=== PATIENT | male | born 1960 | race Two or more races ===

== ENCOUNTER → 2016-06-25 | Outpatient (CLI) | payer BC | LOC: RAD 09:37 | PROVIDERS: ATTEND Internal Medicine | DX: R07.9 Chest pain, unspecified (principal); R06.02 Shortness of breath | CPT/HCPCS: 71275 ==

== ENCOUNTER → 2016-08-01 | Outpatient (CLI) | payer BC | LOC: RAD 09:38 | PROVIDERS: ATTEND Internal Medicine | DX: C18.6 Malignant neoplasm of descending colon (principal); C78.7 Secondary malignant neoplasm of liver and intrahepatic bile duct; K80.80 Other cholelithiasis without obstruction | CPT/HCPCS: 71260; 74177 ==

== ENCOUNTER 2016-08-17 20:54 | Inpatient (IN) | payer BC ==
[2016-08-17] MEDS ORDERED: NORMAL SALINE 1000 ML 1,000 ML IV ONE (22:03)
[2016-08-17] MEDS ORDERED: ONDANSETRON HCL INJ/PF 4 MG/2 ML SDV IV ONE (22:04)
[2016-08-17] MEDS ORDERED: HYDROMORPHONE HCL INJ/PF 2 MG/ML AMPULE IV ONE (22:04)
--- NOTE | 2016-08-17 22:07 | ER Document Report ---
ED General - General Chief Complaint: Abdominal Cramping Stated Complaint: CRAMPS,FLANK PAIN Notes: Patient is 55-year-old male with a known history of colon cancer. Stage IV colon cancer. Is in chemotherapy. He gets once every 2 weeks. He is due for his next injection this coming week. No fevers. He's had pain that started 2 days ago. They just are having vomiting tonight. He does have a colostomy. He has not had any output in his colostomy in almost 48 hours. TRAVEL OUTSIDE OF THE [place] IN LAST 30 DAYS: No - Related Data Allergies/Adverse Reactions: No Known Allergies Allergy (Unverified 01/01/16 12:51) Past Medical History - Social History Smoking Status: Unknown if Ever Smoked Frequency of alcohol use: None Drug Abuse: None Family History: Reviewed & Not Pertinent - Past Medical History Cardiac Medical History: Denies: Hx Coronary Artery Disease, Hx Heart Attack, Hx Hypertension Pulmonary Medical History: Denies: Hx Asthma, Hx Bronchitis, Hx COPD, Hx Pneumonia Neurological Medical History: Denies: Hx Cerebrovascular Accident, Hx Seizures Renal/ Medical History: Denies: Hx Peritoneal Dialysis Musculoskeltal Medical History: Denies Hx Arthritis Psychiatric Medical History: Denies: Hx Depression - Immunizations Hx Diphtheria, Pertussis, Tetanus Vaccination: No Review of Systems - Review of Systems Notes: My Normal Review Basic REVIEW OF SYSTEMS: CONSTITUTIONAL : Denies fever, chills, or sweats. Denies recent illness. RESPIRATORY: Denies cough, cold, or chest congestion. Denies shortness of breath, difficulty breathing, or wheezing. GASTROINTESTINAL: Severe abdominal pain. Vomiting. No colostomy output GENITOURINARY: Denies difficulty urinating, painful urination, burning, frequency, or blood in urine. MUSCULOSKELETAL: Denies neck or back pain or joint pain or swelling. SKIN: Denies rash or skin lesions. HEMATOLOGIC : Denies easy bruising or bleeding. NEUROLOGICAL: Denies altered mental status or loss of consciousness. Denies headache. Denies weakness or paralysis or loss of use of either side. Denies problems with gait or speech. Denies sensory or motor loss. ALL OTHER SYSTEMS REVIEWED AND NEGATIVE. Physical Exam - Notes Notes: General Appearance: Well nourished, alert, cooperative, no acute distress, moderate obvious discomfort. Vitals: reviewed, See vital signs table. Head: no swelling or tenderness to the head Eyes: PERRL, EOMI, Conjuctiva clear Mouth: No decreasd moisture Neck: Supple, no neck tenderness, No thyromegaly Lungs: No wheezing, No rales, No rhonci, No accessory muscle use, good air exchange bilaterally. Heart: Normal rate, Regular rythm, No murmur, no rub Abdomen: Normal BS, abdomen is firm., No rigidity, moderate diffuse abdominal tenderness, some guarding, no rebound, no abdominal masses, no organomegaly. Sophie Irving has no output. Colostomy bags over left lower quadrant. Extremities: strength 5/5 in all extremities, good pulses in all extremities, no swelling or tenderness in the extremities, no edema. Skin: warm, dry, appropriate color, no rash Neuro: speech clear, oriented x 3, normal affect, responds appropriately to questions. Course - Laboratory Result Diagrams: 08/17/16 22:50 08/17/16 22:50 Laboratory results interpreted by me: 08/17/16 08/17/16 22:50 22:50 WBC 11.0 H RBC 3.76 L Hgb 10.9 L Hct 32.9 L RDW 19.0 H Seg Neutrophils % 83.4 H Lymphocytes % 6.1 L Absolute Neutrophils 9.2 H Sodium 133.2 L Chloride 97 L AST 165 H Alkaline Phosphatase 308 H Albumin 3.1 L - Transfer of Care Notes: 08/18/16 01:04 Patient is now resting comfortably. He still is a little tachycardic. I've given him a second liter of fluids now. His vomiting seems benign control for the time being. Dr. Kruegerlas to evaluate the patient and does not think patient obstruction. He recommends admission of the patient for rehydration as well as pain control. I did speak with Dr. Rosales, patient's primary care doctor who agrees in that the patient. Dictation of this chart was performed using voice recognition software; therefore, there may be some unintended grammatical errors. Discharge - Discharge Clinical Impression: History of colon cancer, stage IV Abdominal pain Qualifiers: Abdominal location: generalized Qualified Code(s): R10.84 - Generalized abdominal pain Vomiting Qualifiers: Vomiting type: unspecified Vomiting Intractability: intractable Nausea presence : with nausea Qualified Code(s): R11.2 - Nausea with vomiting, unspecified Condition: Stable Disposition: ADMITTED OBSERVATION Admitting Provider: Rosales Unit Admitted: Telemetry
[2016-08-17 23:19] LABS: ABSOLUTE LYMPHOCYTES (AUTO) 0.7 10^3/uL (0.5-4.7); ABSOLUTE MONOCYTES (AUTO) 1.1 10^3/uL (0.1-1.4); ABSOLUTE NEUT (AUTO) 9.2 10^3/uL (1.7-8.2); BASOPHILS % (AUTO) 0.2 % (0-2); EOSINOPHILS % (AUTO) 0.2 % (0-6); HEMATOCRIT 32.9 % (37.9-51.0); HEMOGLOBIN 10.9 g/dL (13.5-17.0); HGB HCT DIFFERENCE -0.2; LYMPHOCYTES % (AUTO) 6.1 % (13-45); MEAN CORPUSCULAR HEMOGLOBIN 28.9 pg (27.0-33.4); MEAN CORPUSCULAR VOLUME 88 fl (80-97); MONOCYTES % (AUTO) 10.1 % (3-13); RED BLOOD COUNT 3.76 10^6/uL (4.35-5.55); SEGMENTED NEUTROPHILS % (AUTO) 83.4 % (42-78)
--- NOTE | 2016-08-17 23:28 | PDOC CONSULTATION ---
Consultation Consult Date: 08/17/16 Attending physician:: BRANDI POWERS Consult reason:: Abdominal pain History of Present Illness Patient complains of: Abdominal pain History of Present Illness: VINCENT LEWIS is a 55 year old male Presents to the emergency department complaining of 2 days of worsening abdominal pain, decreased by mouth intake, increased fatigue, and decreased to no colostomy output. The patient has stage IV colon cancer, status post exploratory laparotomy, colectomy, diverting colostomy January [address] Griffith. He is been undergoing chemotherapy by Dr. Plummer the last 7 months. He is now in the emergency department being evaluated. Surgery is consulted Past Medical History Cardiac Medical History: Denies: Coronary Artery Disease, Myocardial Infarction, Hypertension Pulmonary Medical History: Denies: Asthma, Bronchitis, Chronic Obstructive Pulmonary Disease (COPD), Pneumonia Neurological Medical History: Denies: Seizures Musculoskeltal Medical History: Denies: Arthritis Psychiatric Medical History: Denies: Depression Hematology: Reports: Anemia Past Surgical History Past Surgical History: Reports: Other - Exploratory laparotomy , sigmoid colectomy, colostomy, port placement Social History Smoking Status: Unknown if Ever Smoked Frequency of Alcohol Use: None Hx Recreational Drug Use: No Drugs: None Hx Prescription Drug Abuse: No Family History Family History: Reviewed & Not Pertinent Parental Family History Reviewed: Yes Children Family History Reviewed: Yes Sibling(s) Family History Reviewed.: Yes - Sr. with stage IV colon cancer Medication/Allergy Home Medications: Ferrous Sulfate [Iron] 325 mg PO DAILY 01/01/16 Levothyroxine Sodium [Unithroid] 112 mcg PO DAILY 01/17/16 Ibuprofen [Motrin 400 mg Tablet] 400 mg PO Q8HP PRN #0 tablet 01/24/16 Lisinopril [Prinivil 10 mg Tablet] 20 mg PO DAILY #30 tablet 01/24/16 Metoprolol Succinate [Toprol Xl 50 mg Tab.sr] 100 mg PO DAILY #30 tab.sr.24h Allergies/Adverse Reactions: No Known Allergies Allergy (Unverified 01/01/16 12:51) Review of Systems Constitutional: PRESENT: weight loss Ears: ABSENT: hearing changes Cardiovascular: ABSENT: chest pain, dyspnea on exertion, edema, orthropnea, palpitations Respiratory: PRESENT: dyspnea Gastrointestinal: PRESENT: as per HPI Physical Exam Vital Signs: Intake & Output 08/16/16 08/17/1617 06:59 06:59 06:59 Weight 61.9 kg General appearance: PRESENT: mild distress Head exam: PRESENT: normocephalic Eye exam: PRESENT: EOMI Mouth exam: PRESENT: dry mucosa Neck exam: PRESENT: full ROM Respiratory exam: PRESENT: decreased breath sounds Cardiovascular exam: PRESENT: other - Tachycardia GI/Abdominal exam: PRESENT: other - Palpable hepatomegaly; all ostomy appliance removed, colostomy pink, digital examination revealed no mechanical obstruction , no impaction Extremities exam: PRESENT: joint swelling Results Laboratory Results: 08/17/16 22:50 08/17/16 22:50 WBC 11.0 H RBC 3.76 L Hgb 10.9 L Hct 32.9 L MCV 88 MCH 28.9 MCHC 33.0 RDW 19.0 H Plt Count 337 Seg Neutrophils % 83.4 H Lymphocytes % 6.1 L Monocytes % 10.1 Eosinophils % 0.2 Basophils % 0.2 Absolute Neutrophils 9.2 H Absolute Lymphocytes 0.7 Absolute Monocytes 1.1 Absolute Eosinophils 0.0 Absolute Basophils 0.0 Assessment & Plan - Diagnosis (1) History of colon cancer, stage IV Is this a current diagnosis for this admission?: YesPlan: 1. Patient is experiencing increased abdominal pain, nausea and vomiting decreased by mouth intake decreased colostomy output most likely due to worsening hepatomegaly due to extensive metastatic disease. I do not believe he has a mechanical bowel obstruction. There is no indication for surgical intervention 2. Patient is tachycardic and hypertensive likely due to increased abdominal pain. I believe the patient needs to be admitted to the medicine service for pain management, hypertensive management and to discuss level of aggressiveness of care including patient's CODE STATUS. I spoke with patient's [id number] who takes care of patients sister who also has stage IV colon cancer. I explained that patient will likely be admitted to the medicine service, and further discussion about advanced directives will be undertaken tomorrow morning. (2) Malignant neoplasm of descending colon Is this a current diagnosis for this admission?: Yes - Time Time Spent: 50 to 70 Minutes Critical Time spent with patient: 15-24 minutes
[2016-08-17 23:30] LABS: ALANINE AMINOTRANSFERASE 43 U/L (21-72); ALBUMIN 3.1 g/dL (3.5-5.0); ALKALINE PHOSPHATASE 308 U/L (38-126); ANION GAP 10 (5-19); ASPARTATE AMINO TRANSFERASE 165 U/L (17-59); BILIRUBIN,DIRECT 0.4 mg/dL (0.0-0.4); BILIRUBIN,TOTAL 0.9 mg/dL (0.2-1.3); BLOOD UREA NITROGEN 13 mg/dL (7-20); CALCIUM 9.2 mg/dL (8.4-10.2); CARBON DIOXIDE 26 mmol/L (22-30); CHLORIDE 97 mmol/L (98-107); CREATININE RESULT 0.56 mg/dL (0.52-1.25); GLUCOSE 102 mg/dL (75-110); LIPASE 120.4 U/L (23-300); POTASSIUM 4.3 mmol/L (3.6-5.0); SODIUM 133.2 mmol/L (137-145); TOTAL PROTEIN 7.5 g/dL (6.3-8.2)
[2016-08-18] MEDS ORDERED: NORMAL SALINE 1000 ML 1,000 ML IV ONE (00:44)
[2016-08-18] MEDS ORDERED: NORMAL SALINE 1000 ML 1,000 ML IV PRN (05:22)
[2016-08-18] MEDS: ONDANSETRON HCL INJ/PF 4 MG/2 ML SDV IV PRN (06:29)
[2016-08-18] MEDS: HYDROMORPHONE HCL INJ/PF 2 MG/ML AMPULE IV PRN ×3 (06:29→20:58)
--- NOTE | 2016-08-18 07:59 | PDOC H&P ---
History of Present Illness Admission Date/PCP: 08/18/16 05:15 Patient complains of: abdominal pain History of Present Illness: VINCENT LEWIS is a 55 year old male Presents to the emergency department complaining of 2 days of worsening abdominal pain, decreased by mouth intake, increased fatigue, and decreased to no colostomy output. The patient has stage IV colon cancer, status post exploratory laparotomy, colectomy, diverting colostomy January [address] Griffith. He is been undergoing chemotherapy by Dr. Plummer the last 7 months. Last chemo 12d ago. RUQ pain is persistant. Other quadrants are crampy. Vomited 3 times yesterday. Transient diarrhea changed to constipation 2d ago. Past Medical History Cardiac Medical History: Reports: Hypertension Denies: Coronary Artery Disease, Myocardial Infarction Pulmonary Medical History: Denies: Asthma, Bronchitis, Chronic Obstructive Pulmonary Disease (COPD), Pneumonia EENT Medical History: Reports: Nose - allergic rhinitis Neurological Medical History: Reports: None Endocrine Medical History: Reports: Hypothyroidism Renal/ Medical History: Reports: None Malignancy Medical History: Reports: Colorectal Cancer GI Medical History: Reports: None Musculoskeltal Medical History: Reports: None Skin Medical History: Reports: None Psychiatric Medical History: Reports: None Denies: Depression Traumatic Medical History: Reports: None Hematology: Reports: Anemia Infectious Medical History: Reports: None Past Surgical History Past Surgical History: Reports: Other - Exploratory laparotomy , sigmoid colectomy, colostomy, port placement Social History Information Source: Dr. Wdae Lives with: Family Smoking Status: Never Smoker Frequency of Alcohol Use: None Hx Recreational Drug Use: No Drugs: None Hx Prescription Drug Abuse: No - Advance Directive Resuscitation Status: Full Code Family History Family History: CVA, Hypertension, Malignancy - sister colon Parental Family History Reviewed: Yes Children Family History Reviewed: Yes Sibling(s) Family History Reviewed.: Yes Medication/Allergy Home Medications: Atorvastatin Calcium [Lipitor 10 mg Tablet] 10 mg PO QHS 08/18/16 Ferrous Sulfate [Ferrousul] 325 mg PO DAILY 08/18/16 Levothyroxine Sodium [Synthroid] 137 mcg PO 08/18/16 Lisinopril [Zestril] 20 mg PO DAILY 08/18/16 Allergies/Adverse Reactions: No Known Allergies Allergy (Unverified 01/01/16 12:51) Review of Systems Constitutional: PRESENT: chills, fatigue, headache(s), weakness, weight loss - 21# in 1y Nose, Mouth, and Throat: ABSENT: sore throat Cardiovascular: ABSENT: chest pain, dyspnea on exertion, orthropnea Respiratory: ABSENT: cough Gastrointestinal: PRESENT: abdominal pain, diarrhea, vomiting. ABSENT: hematochezia Genitourinary: ABSENT: dysuria, hematuria Allergic/Immunologic: PRESENT: seasonal rhinorrhea Physical Exam Vital Signs: Temp Pulse Resp BP Pulse Ox 98.8 F 111 H 18 128/82 H 97 08/18/16 05:51 08/18/16 05:51 08/18/16 05:51 08/18/16 05:51 08/18/16 05:51 Intake & Output 08/16/16 08/17/16 08/18/16 07:59 07:59 07:59 Weight 135 lb 2.294 oz General appearance: PRESENT: no acute distress Mouth exam: ABSENT: moist Neck exam: ABSENT: lymphadenopathy, tenderness, thyromegaly, tracheal deviation Respiratory exam: PRESENT: clear to auscultation bre Cardiovascular exam: PRESENT: tachycardia. ABSENT: diastolic murmur, systolic murmur GI/Abdominal exam: PRESENT: guarding, organolmegaly - liver almost to umbilicus , tenderness - difuse. ABSENT: distended Extremities exam: ABSENT: pedal edema Neurological exam: PRESENT: oriented to situation Psychiatric exam: PRESENT: depressed Results Laboratory Results: Abnormal - 24 hr 08/17/16 08/17/16 22:50 22:50 WBC 11.0 H RBC 3.76 L Hgb 10.9 L Hct 32.9 L RDW 19.0 H Seg Neutrophils % 83.4 H Lymphocytes % 6.1 L Absolute Neutrophils 9.2 H Sodium 133.2 L Chloride 97 L AST 165 H Alkaline Phosphatase 308 H Albumin 3.1 L Impressions: Acute Abdomen Series 08/17/16 22:03 IMPRESSION: NO RADIOGRAPHIC EVIDENCE FOR ACUTE ABDOMINAL DISEASE. Extensive nodular lung lesions consistent with previously suspected metastases. Assessment & Plan - Diagnosis (1) Malignant neoplasm of descending colon Is this a current diagnosis for this admission?: YesPlan: Recent CT showed bigger liver mets & stable lung mets. Saline, dilaudid, ondansetron, consult onc. Considering DNR. ?hospice.
--- NOTE | 2016-08-18 08:09 | PDOC CONSULTATION ---
Consultation Consult Date: 08/18/16 Attending physician:: MIGUEL SIN Consult reason:: Concern of obstruction, patient with no ostomy output for 2 days History of Present Illness Admission Date/PCP: 08/18/16 05:15 Patient complains of: Nausea, no ostomy output History of Present Illness: 55-year-old male with known history of stage IV colon cancer, he has metastasis to the liver and lung. Recently he has been on chemotherapy with FOLFOX plus Avastin. He is been doing very well with treatment, tolerating it well, having a good performance status. He has had issues with constipation in the past. On Thursday, he had a liquidy output from his ostomy, but since then over the last 48 hours he has not had any ostomy output, and no gas passed either. He does have some nausea this morning, some pain at the ostomy site. His last imaging was about 6 weeks ago when he had overall stable disease. Past Medical History Cardiac Medical History: Reports: Hypertension Denies: Coronary Artery Disease, Myocardial Infarction Pulmonary Medical History: Denies: Asthma, Bronchitis, Chronic Obstructive Pulmonary Disease (COPD), Pneumonia EENT Medical History: Reports: Nose - allergic rhinitis Neurological Medical History: Reports: None Denies: Seizures Endocrine Medical History: Reports: Hypothyroidism Renal/ Medical History: Reports: None Malignancy Medical History: Reports: Colorectal Cancer GI Medical History: Reports: None Musculoskeltal Medical History: Reports: None Denies: Arthritis Skin Medical History: Reports: None Psychiatric Medical History: Reports: None Denies: Depression Traumatic Medical History: Reports: None Hematology: Reports: Anemia Infectious Medical History: Reports: None Past Surgical History Past Surgical History: Reports: Other - Exploratory laparotomy , sigmoid colectomy, colostomy, port placement Social History Lives with: Family Smoking Status: Never Smoker Frequency of Alcohol Use: None Hx Recreational Drug Use: No Drugs: None Hx Prescription Drug Abuse: No - Advance Directive Resuscitation Status: Full Code Family History Family History: CVA, Hypertension, Malignancy - sister colon Parental Family History Reviewed: Yes Children Family History Reviewed: Yes Sibling(s) Family History Reviewed.: Yes Medication/Allergy Home Medications: Atorvastatin Calcium [Lipitor 10 mg Tablet] 10 mg PO QHS 08/18/16 Ferrous Sulfate [Ferrousul] 325 mg PO DAILY 08/18/16 Levothyroxine Sodium [Synthroid] 137 mcg PO 08/18/16 Lisinopril [Zestril] 20 mg PO DAILY 08/18/16 Allergies/Adverse Reactions: No Known Allergies Allergy (Unverified 01/01/16 12:51) Review of Systems Constitutional: ABSENT: chills, fever(s), headache(s), weight gain, weight loss Eyes: ABSENT: visual disturbances Ears: ABSENT: hearing changes Cardiovascular: ABSENT: chest pain, dyspnea on exertion, edema, orthropnea, palpitations Respiratory: ABSENT: cough, hemoptysis Gastrointestinal: PRESENT: bloating, nausea, other - No ostomy output Genitourinary: ABSENT: dysuria, hematuria Musculoskeletal: ABSENT: joint swelling Integumentary: ABSENT: rash, wounds Neurological: ABSENT: abnormal gait, abnormal speech, confusion, dizziness, focal weakness, syncope Psychiatric: ABSENT: anxiety, depression, homidical ideation, suicidal ideation Endocrine: ABSENT: cold intolerance, heat intolerance, polydipsia, polyuria Hematologic/Lymphatic: ABSENT: easy bleeding, easy bruising Physical Exam Vital Signs: Temp Pulse Resp BP Pulse Ox 98.8 F 111 H 18 128/82 H 97 08/18/16 05:51 08/18/16 05:51 08/18/16 05:51 08/18/16 05:51 08/18/16 05:51 Intake & Output 08/17/16 08/18/16 08/19/16 06:59 06:59 06:59 Weight 61.3 kg General appearance: PRESENT: no acute distress, well-developed, well-nourished Head exam: PRESENT: atraumatic, normocephalic Eye exam: PRESENT: conjunctiva pink, EOMI, PERRLA. ABSENT: scleral icterus Ear exam: PRESENT: normal external ear exam Mouth exam: PRESENT: moist, tongue midline Neck exam: ABSENT: carotid bruit, JVD, lymphadenopathy, thyromegaly Respiratory exam: PRESENT: clear to auscultation bre. ABSENT: rales, rhonchi, wheezes Cardiovascular exam: PRESENT: RRR. ABSENT: diastolic murmur, rubs, systolic murmur Pulses: PRESENT: normal dorsalis pedis pul Vascular exam: PRESENT: normal capillary refill GI/Abdominal exam: PRESENT: normal bowel sounds, soft. ABSENT: distended, guarding, mass, organolmegaly, rebound, tenderness Rectal exam: PRESENT: deferred Extremities exam: PRESENT: full ROM. ABSENT: calf tenderness, clubbing, pedal edema Neurological exam: PRESENT: alert, awake, oriented to person, oriented to place , oriented to time, oriented to situation, CN II-XII grossly intact. ABSENT: motor sensory deficit Psychiatric exam: PRESENT: appropriate affect, normal mood. ABSENT: homicidal ideation, suicidal ideation Skin exam: PRESENT: dry, intact, warm. ABSENT: cyanosis, rash Results Impressions: Acute Abdomen Series 08/17/16 22:03 IMPRESSION: NO RADIOGRAPHIC EVIDENCE FOR ACUTE ABDOMINAL DISEASE. Extensive nodular lung lesions consistent with previously suspected metastases. Status: Image reviewed by me Assessment & Plan - Diagnosis (1) Obstruction of intestine or colon Qualifiers: Intestinal obstruction type: other intestinal obstruction Qualified Code(s): K56.69 - Other intestinal obstruction Is this a current diagnosis for this admission?: YesPlan: Concern of obstruction, I have discussed case with general surgery, they will be doing a Gastrografin enema today. Hopefully that won't show complete obstruction, he may just have a partial obstruction possibly from severe constipation. If that is the case then enemas will help him, and once we get that moving then we can advance diet and get him home and continue treatment. (2) Malignant neoplasm of descending colon Is this a current diagnosis for this admission?: YesPlan: Stage IV colon cancer, currently on IV chemotherapy, we will continue this as an outpatient. - Time Time Spent: Greater than 70 Minutes Critical Time spent with patient: 35 or more minutes - Inpatient Certification Based on my medical assessment, after consideration of the patient's comorbidities, presenting symptoms, or acuity I expect that the services needed warrant INPATIENT care.: Yes I certify that my determination is in accordance with my understanding of Medicare's requirements for reasonable and necessary INPATIENT services [42 CFR 412.3e].: Yes Medical Necessity: Need for Surgery, Risk of Complication if Not Cared For in Hospital, Other - No ostomy output, concern of obstruction
[2016-08-18] MEDS: LEVOTHYROXINE SODIUM 0.112 MG TABLET PO SCH (09:21)
--- NOTE | 2016-08-18 09:43 | PROGRESS NOTE E ---
Progress Note NAME: VINCENT LEWIS : 1960 AGE: 55Y DATE: 08/18/2016 ROOM: 435 SUBJECTIVE: Dr. Plummer asked me to see the patient for possible decreased drainage from the colostomy. Patient's chart reviewed and apparently seen by Dr. Slater yesterday or last night in the emergency room. Dr. lSater' consult reviewed. I saw the patient at bedside and taking Jello. He denies any nausea or vomiting. OBJECTIVE: The abdomen is soft and the colostomy is starting to have some gas. A digital exam of the colostomy was performed and no lesion palpated or stool in the colostomy site. He has stage IV colon cancer and had a diverting colostomy done by Dr. Slater in the past. His abdomen is flat and soft without any obvious tenderness. PLAN: I believe the colostomy is starting to function again and will hold off doing any Gastrografin enema that I initially talked to Dr. Plummer that I plan to do. At any rate, will continue following the patient with you. DICTATING PHYSICIAN: JOSE CARLOS MORRISON M.D. [id number] JOHNY#: [id number] ID: [id number] JOB#: [id number] ACCT: [id number] cc: > MTDD
[2016-08-18] MEDS ORDERED: LACTULOSE SYRUP 20 GM/30 ML UDCUP PO ONE (19:30)
[2016-08-19] MEDS: HYDROMORPHONE HCL INJ/PF 2 MG/ML AMPULE IV PRN ×3 (03:17→17:44)
[2016-08-19 05:40] LABS: ANION GAP 8 (5-19); BLOOD UREA NITROGEN 7 mg/dL (7-20); CALCIUM 8.7 mg/dL (8.4-10.2); CARBON DIOXIDE 28 mmol/L (22-30); CHLORIDE 98 mmol/L (98-107); CREATININE RESULT 0.54 mg/dL (0.52-1.25); GLUCOSE 104 mg/dL (75-110); POTASSIUM 4.2 mmol/L (3.6-5.0); SODIUM 133.5 mmol/L (137-145)
--- NOTE | 2016-08-19 08:27 | PDOC PROGRESS REPORT ---
Subjective Progress Note for:: 08/19/16 Subjective:: less RLQ pain. Gas only in bag Physical Exam Vital Signs: Temp Pulse Resp BP Pulse Ox 98.9 F 108 H 19 127/76 H 96 08/18/16 23:20 08/18/16 23:20 08/18/16 23:20 08/18/16 23:20 08/18/16 23:20 General appearance: PRESENT: no acute distress Respiratory exam: PRESENT: clear to auscultation bre Cardiovascular exam: PRESENT: RRR. ABSENT: diastolic murmur, systolic murmur GI/Abdominal exam: PRESENT: organolmegaly - liver, tenderness - RLQ moderate. ABSENT: guarding Extremities exam: ABSENT: pedal edema Results Laboratory Results: 08/19/16 04:45 08/19/16 04:45 Sodium 133.5 L Potassium 4.2 Chloride 98 Carbon Dioxide 28 Anion Gap 8 BUN 7 Creatinine 0.54 Est GFR ( Amer) > 60 Est GFR (Non-Af Amer) > 60 Glucose 104 Calcium 8.7 Impressions: Acute Abdomen Series 08/17/16 22:03 IMPRESSION: NO RADIOGRAPHIC EVIDENCE FOR ACUTE ABDOMINAL DISEASE. Extensive nodular lung lesions consistent with previously suspected metastases. Assessment & Plan - Diagnosis (1) Malignant neoplasm of descending colon Is this a current diagnosis for this admission?: Yes (2) Constipation Qualifiers: Constipation type: drug induced constipation Qualified Code(s): K59.03 - Drug induced constipation Is this a current diagnosis for this admission?: YesPlan: amitiza
[2016-08-19] MEDS ORDERED: SENNOSIDES/DOCUSATE 8.6-50 MG 1 EACH TABLET PO PRN (08:38)
[2016-08-19] MEDS ORDERED: POLYETHYLENE GLYCOL 3350 POWDER 17 GM/1 PACKET PO PRN (08:38)
--- NOTE | 2016-08-19 08:38 | PDOC PROGRESS REPORT ---
Subjective Progress Note for:: 08/19/16 Subjective:: Patient does now have gas in the ostomy bag, general surgery did see him yesterday, initially they were thinking of doing a Gastrografin enema but given the fact that there was gas in the bag they felt like the bowel function would return appropriately. He is tolerating clear liquid diet thus far. Physical Exam Vital Signs: Temp Pulse Resp BP Pulse Ox 98.9 F 108 H 19 127/76 H 96 08/18/16 23:20 08/18/16 23:20 08/18/16 23:20 08/18/16 23:20 08/18/16 23:20 General appearance: PRESENT: no acute distress, well-developed, well-nourished Head exam: PRESENT: atraumatic, normocephalic Eye exam: PRESENT: conjunctiva pink, EOMI, PERRLA. ABSENT: scleral icterus Ear exam: PRESENT: normal external ear exam Mouth exam: PRESENT: moist, tongue midline Neck exam: ABSENT: carotid bruit, JVD, lymphadenopathy, thyromegaly Respiratory exam: PRESENT: clear to auscultation bre. ABSENT: rales, rhonchi, wheezes Cardiovascular exam: PRESENT: RRR. ABSENT: diastolic murmur, rubs, systolic murmur Pulses: PRESENT: normal dorsalis pedis pul Vascular exam: PRESENT: normal capillary refill GI/Abdominal exam: PRESENT: normal bowel sounds, soft. ABSENT: distended, guarding, mass, organolmegaly, rebound, tenderness Rectal exam: PRESENT: deferred Extremities exam: PRESENT: full ROM. ABSENT: calf tenderness, clubbing, pedal edema Neurological exam: PRESENT: alert, awake, oriented to person, oriented to place , oriented to time, oriented to situation, CN II-XII grossly intact. ABSENT: motor sensory deficit Psychiatric exam: PRESENT: appropriate affect, normal mood. ABSENT: homicidal ideation, suicidal ideation Skin exam: PRESENT: dry, intact, warm. ABSENT: cyanosis, rash Results Laboratory Results: 08/19/16 04:45 08/19/16 04:45 Sodium 133.5 L Potassium 4.2 Chloride 98 Carbon Dioxide 28 Anion Gap 8 BUN 7 Creatinine 0.54 Est GFR ( Amer) > 60 Est GFR (Non-Af Amer) > 60 Glucose 104 Calcium 8.7 Impressions: Acute Abdomen Series 08/17/16 22:03 IMPRESSION: NO RADIOGRAPHIC EVIDENCE FOR ACUTE ABDOMINAL DISEASE. Extensive nodular lung lesions consistent with previously suspected metastases. Assessment & Plan - Diagnosis (1) Obstruction of intestine or colon Qualifiers: Intestinal obstruction type: other intestinal obstruction Qualified Code(s): K56.69 - Other intestinal obstruction Is this a current diagnosis for this admission?: YesPlan: Seems to be improving now that there is gas in the ostomy site, hopefully bowels start moving with the next 24 hours. I've ordered MiraLAX as well as Senokot. If we don't have bowel movements by tomorrow I think further imaging would be appropriate. (2) Malignant neoplasm of descending colon Is this a current diagnosis for this admission?: YesPlan: Further treatment planned as an outpatient - Inpatient Certification Medical Necessity: Need For IV Fluids, Need for Surgery
[2016-08-19] MEDS: OXYCODONE HCL IR 5 MG TABLET PO PRN (10:34)
[2016-08-19] MEDS: LUBIPROSTONE 24 MCG CAPSULE PO SCH ×2 (10:35→17:37)
[2016-08-19] MEDS: LEVOTHYROXINE SODIUM 0.112 MG TABLET PO SCH (10:35)
[2016-08-19] MEDS: LACTULOSE SYRUP 20 GM/30 ML UDCUP PO SCH ×2 (10:38→17:38)
[2016-08-19] MEDS: FLUTICASONE NASAL SPRAY 50 MCG/SPRY 120 SPRAY/16 GM NASL PRN (22:42)
[2016-08-20] MEDS: OXYCODONE HCL IR 5 MG TABLET PO PRN ×3 (01:33→23:07)
[2016-08-20] MEDS: HYDROMORPHONE HCL INJ/PF 2 MG/ML AMPULE IV PRN (04:04)
[2016-08-20 06:38] LABS: ANION GAP 7 (5-19); BLOOD UREA NITROGEN 3 mg/dL (7-20); CALCIUM 8.6 mg/dL (8.4-10.2); CARBON DIOXIDE 30 mmol/L (22-30); CHLORIDE 98 mmol/L (98-107); CREATININE RESULT 0.49 mg/dL (0.52-1.25); GLUCOSE 126 mg/dL (75-110); POTASSIUM 3.5 mmol/L (3.6-5.0); SODIUM 134.9 mmol/L (137-145)
--- NOTE | 2016-08-20 08:14 | PDOC PROGRESS REPORT ---
Subjective Progress Note for:: 08/20/16 Subjective:: 4 stools in bag. Less nausea & pain. Not ready for home yet Physical Exam Vital Signs: Temp Pulse Resp BP Pulse Ox 98.5 F 113 H 20 142/95 H 92 08/19/16 23:10 08/19/16 23:10 08/19/16 23:10 08/19/16 23:10 08/19/16 23:10 Intake & Output 08/19/16 08/20/16 08/21/16 07:59 07:59 07:59 Intake Total 5031 Balance 5031 Weight 139 lb 8.842 oz General appearance: PRESENT: no acute distress Respiratory exam: PRESENT: clear to auscultation bre Cardiovascular exam: ABSENT: diastolic murmur, irregular rhythm, systolic murmur GI/Abdominal exam: PRESENT: organolmegaly, tenderness - mild diffuse Extremities exam: ABSENT: pedal edema Neurological exam: PRESENT: oriented to situation Psychiatric exam: PRESENT: appropriate affect Results Laboratory Results: 08/20/16 05:45 08/20/16 05:45 Sodium 134.9 L Potassium 3.5 L Chloride 98 Carbon Dioxide 30 Anion Gap 7 BUN 3 L Creatinine 0.49 L Est GFR ( Amer) > 60 Est GFR (Non-Af Amer) > 60 Glucose 126 H Calcium 8.6 Impressions: Acute Abdomen Series 08/17/16 22:03 IMPRESSION: NO RADIOGRAPHIC EVIDENCE FOR ACUTE ABDOMINAL DISEASE. Extensive nodular lung lesions consistent with previously suspected metastases. Assessment & Plan - Diagnosis (1) Malignant neoplasm of descending colon Is this a current diagnosis for this admission?: YesPlan: stop iv dilaudid (2) Constipation Qualifiers: Constipation type: drug induced constipation Qualified Code(s): K59.03 - Drug induced constipation Is this a current diagnosis for this admission?: YesPlan: improved. Continue laxatives.
--- NOTE | 2016-08-20 08:44 | PDOC PROGRESS REPORT ---
Subjective Progress Note for:: 08/20/16 Subjective:: Pt now having liquid BMs Physical Exam Vital Signs: Temp Pulse Resp BP Pulse Ox 98.3 F 98 16 136/88 H 98 08/20/16 08:29 08/20/16 08:29 08/20/16 08:29 08/20/16 08:29 08/20/16 08:29 Intake & Output 08/19/16 08/20/16 08/21/16 06:59 06:59 06:59 Intake Total 5031 Balance 5031 Weight 63.3 kg General appearance: PRESENT: no acute distress, well-developed, well-nourished Head exam: PRESENT: atraumatic, normocephalic Eye exam: PRESENT: conjunctiva pink, EOMI, PERRLA. ABSENT: scleral icterus Ear exam: PRESENT: normal external ear exam Mouth exam: PRESENT: moist, tongue midline Neck exam: ABSENT: carotid bruit, JVD, lymphadenopathy, thyromegaly Respiratory exam: PRESENT: clear to auscultation bre. ABSENT: rales, rhonchi, wheezes Cardiovascular exam: PRESENT: RRR. ABSENT: diastolic murmur, rubs, systolic murmur Pulses: PRESENT: normal dorsalis pedis pul Vascular exam: PRESENT: normal capillary refill GI/Abdominal exam: PRESENT: normal bowel sounds, soft. ABSENT: distended, guarding, mass, organolmegaly, rebound, tenderness Rectal exam: PRESENT: deferred Extremities exam: PRESENT: full ROM. ABSENT: calf tenderness, clubbing, pedal edema Neurological exam: PRESENT: alert, awake, oriented to person, oriented to place , oriented to time, oriented to situation, CN II-XII grossly intact. ABSENT: motor sensory deficit Psychiatric exam: PRESENT: appropriate affect, normal mood. ABSENT: homicidal ideation, suicidal ideation Skin exam: PRESENT: dry, intact, warm. ABSENT: cyanosis, rash Results Laboratory Results: 08/20/16 05:45 08/20/16 05:45 Sodium 134.9 L Potassium 3.5 L Chloride 98 Carbon Dioxide 30 Anion Gap 7 BUN 3 L Creatinine 0.49 L Est GFR ( Amer) > 60 Est GFR (Non-Af Amer) > 60 Glucose 126 H Calcium 8.6 Impressions: Acute Abdomen Series 08/17/16 22:03 IMPRESSION: NO RADIOGRAPHIC EVIDENCE FOR ACUTE ABDOMINAL DISEASE. Extensive nodular lung lesions consistent with previously suspected metastases. Assessment & Plan - Diagnosis (1) Obstruction of intestine or colon Qualifiers: Intestinal obstruction type: other intestinal obstruction Qualified Code(s): K56.69 - Other intestinal obstruction Is this a current diagnosis for this admission?: YesPlan: Resolved, having liquid BMs, feeling better, will advance diet. If tolerated D/ C tomorrow (2) Malignant neoplasm of descending colon Is this a current diagnosis for this admission?: YesPlan: Hold chemo this week, restart next week - Inpatient Certification Medical Necessity: Need For IV Fluids
[2016-08-20] MEDS: LEVOTHYROXINE SODIUM 0.112 MG TABLET PO SCH (10:59)
[2016-08-20] MEDS: LUBIPROSTONE 24 MCG CAPSULE PO SCH ×2 (11:00→18:03)
[2016-08-20] MEDS: LACTULOSE SYRUP 20 GM/30 ML UDCUP PO SCH ×2 (11:00→18:03)
[2016-08-20] MEDS: FLUTICASONE NASAL SPRAY 50 MCG/SPRY 120 SPRAY/16 GM NASL PRN (20:20)
--- NOTE | 2016-08-20 21:28 | PROGRESS NOTE E ---
Progress Note NAME: VINCENT LEWIS : 1960 AGE: 55Y DATE: 08/20/2016 ROOM: 435 SUBJECTIVE: The patient's colostomy is functioning very well. She is also tolerating a regular diet. We will sign off followup for the patient since at the present time there is no obstruction on the colostomy. DICTATING PHYSICIAN: JOSE CARLOS MORRISON M.D. [id number] PHY#: [id number] ID: [id number] JOB#: [id number] ACCT: [id number] cc: >
[2016-08-21 06:24] LABS: ANION GAP 6 (5-19); BLOOD UREA NITROGEN 3 mg/dL (7-20); CALCIUM 8.6 mg/dL (8.4-10.2); CARBON DIOXIDE 32 mmol/L (22-30); CHLORIDE 95 mmol/L (98-107); CREATININE RESULT 0.45 mg/dL (0.52-1.25); GLUCOSE 85 mg/dL (75-110); POTASSIUM 3.6 mmol/L (3.6-5.0); SODIUM 133.3 mmol/L (137-145)
[2016-08-21] MEDS ORDERED: ACETAMINOPHEN 325 MG TABLET PO PRN (07:15)
--- NOTE | 2016-08-21 07:21 | PDOC PROGRESS REPORT ---
Subjective Progress Note for:: 08/21/16 Subjective:: epigastric & RUQ pain worse. Oxy5 failed. Filled bag 3 times Physical Exam Vital Signs: Temp Pulse Resp BP Pulse Ox 100.2 F 105 H 19 146/91 H 98 08/21/16 04:00 08/20/16 23:52 08/20/16 23:52 08/20/16 23:52 08/20/16 23:52 Intake & Output 08/19/16 08/20/16 08/21/16 07:59 07:59 07:59 Intake Total 5031 840 Balance 5031 840 Weight 139 lb 8.842 oz 140 lb 10.479 oz General appearance: PRESENT: mild distress Respiratory exam: PRESENT: clear to auscultation bre Cardiovascular exam: PRESENT: RRR. ABSENT: diastolic murmur, systolic murmur GI/Abdominal exam: PRESENT: organolmegaly, tenderness - moderate epigstric. ABSENT: guarding Extremities exam: ABSENT: pedal edema Results Laboratory Results: 08/21/16 05:15 08/21/16 05:15 Sodium 133.3 L Potassium 3.6 Chloride 95 L Carbon Dioxide 32 H Anion Gap 6 BUN 3 L Creatinine 0.45 L Est GFR ( Amer) > 60 Est GFR (Non-Af Amer) > 60 Glucose 85 Calcium 8.6 Impressions: Acute Abdomen Series 08/17/16 22:03 IMPRESSION: NO RADIOGRAPHIC EVIDENCE FOR ACUTE ABDOMINAL DISEASE. Extensive nodular lung lesions consistent with previously suspected metastases. Assessment & Plan - Diagnosis (1) Malignant neoplasm of descending colon Is this a current diagnosis for this admission?: YesPlan: add fentanyl patch 50 (2) Constipation Qualifiers: Constipation type: drug induced constipation Qualified Code(s): K59.03 - Drug induced constipation Is this a current diagnosis for this admission?: YesPlan: stop miralax
--- NOTE | 2016-08-21 07:58 | PDOC PROGRESS REPORT ---
Subjective Progress Note for:: 08/21/16 Subjective:: Patient still had some abdominal pain, having liquidy BMs through ostomy, tolerated regular diet yesterday Physical Exam Vital Signs: Temp Pulse Resp BP Pulse Ox 100.2 F 105 H 19 146/91 H 98 08/21/16 04:00 08/20/16 23:52 08/20/16 23:52 08/20/16 23:52 08/20/16 23:52 Intake & Output 08/20/16 08/21/16 08/22/16 06:59 06:59 06:59 Intake Total 5031 840 Balance 5031 840 Weight 63.3 kg 63.8 kg General appearance: PRESENT: no acute distress, well-developed, well-nourished Head exam: PRESENT: atraumatic, normocephalic Eye exam: PRESENT: conjunctiva pink, EOMI, PERRLA. ABSENT: scleral icterus Ear exam: PRESENT: normal external ear exam Mouth exam: PRESENT: moist, tongue midline Neck exam: ABSENT: carotid bruit, JVD, lymphadenopathy, thyromegaly Respiratory exam: PRESENT: clear to auscultation bre. ABSENT: rales, rhonchi, wheezes Cardiovascular exam: PRESENT: RRR. ABSENT: diastolic murmur, rubs, systolic murmur Pulses: PRESENT: normal dorsalis pedis pul Vascular exam: PRESENT: normal capillary refill GI/Abdominal exam: PRESENT: normal bowel sounds, soft. ABSENT: distended, guarding, mass, organolmegaly, rebound, tenderness Rectal exam: PRESENT: deferred Extremities exam: PRESENT: full ROM. ABSENT: calf tenderness, clubbing, pedal edema Neurological exam: PRESENT: alert, awake, oriented to person, oriented to place , oriented to time, oriented to situation, CN II-XII grossly intact. ABSENT: motor sensory deficit Psychiatric exam: PRESENT: appropriate affect, normal mood. ABSENT: homicidal ideation, suicidal ideation Skin exam: PRESENT: dry, intact, warm. ABSENT: cyanosis, rash Results Laboratory Results: 08/21/16 05:15 08/21/16 05:15 Sodium 133.3 L Potassium 3.6 Chloride 95 L Carbon Dioxide 32 H Anion Gap 6 BUN 3 L Creatinine 0.45 L Est GFR ( Amer) > 60 Est GFR (Non-Af Amer) > 60 Glucose 85 Calcium 8.6 Impressions: Acute Abdomen Series 08/17/16 22:03 IMPRESSION: NO RADIOGRAPHIC EVIDENCE FOR ACUTE ABDOMINAL DISEASE. Extensive nodular lung lesions consistent with previously suspected metastases. Assessment & Plan - Diagnosis (1) Obstruction of intestine or colon Qualifiers: Intestinal obstruction type: other intestinal obstruction Qualified Code(s): K56.69 - Other intestinal obstruction Is this a current diagnosis for this admission?: YesPlan: Seems greatly improved, continue 1 more day of hydration as well as regular diet to make sure the patient can tolerate oral nutrition prior to discharge. (2) Malignant neoplasm of descending colon Is this a current diagnosis for this admission?: YesPlan: Continue treatment as an outpatient as noted previously chemotherapy will be held this week and probably restarted next week. - Time Time Spent with patient: 25-34 minutes Critical Time spent with patient: 25-34 minutes
[2016-08-21] MEDS: LUBIPROSTONE 24 MCG CAPSULE PO SCH ×2 (09:51→17:19)
[2016-08-21] MEDS: LEVOTHYROXINE SODIUM 0.112 MG TABLET PO SCH (09:51)
[2016-08-21] MEDS: LACTULOSE SYRUP 20 GM/30 ML UDCUP PO SCH ×2 (09:51→17:18)
[2016-08-21] MEDS ORDERED: FENTANYL 50 MCG/HR PATCH.TD72 TD SCH (10:00)
[2016-08-21 15:16] LABS: APPEARANCE,URINE CLEAR; BILIRUBIN,URINE NEGATIVE (NEGATIVE); GLUCOSE, URINE NEGATIVE (NEGATIVE); KETONES,URINE NEGATIVE (NEGATIVE); LEUKOCYTE ESTERASE,URINE NEGATIVE (NEGATIVE); NITRITE,URINE NEGATIVE (NEGATIVE); PROTEIN,URINE NEGATIVE (NEGATIVE); URINE SPECIFIC GRAVITY 1.005; UROBILINOGEN,URINE NEGATIVE mg/dL (<2.0)
[2016-08-21] MEDS: ONDANSETRON HCL INJ/PF 4 MG/2 ML SDV IV PRN (18:57)
--- NOTE | 2016-08-22 07:54 | PDOC PROGRESS REPORT ---
Subjective Progress Note for:: 08/22/16 Subjective:: Patient had a little bit of diarrhea overnight as well as some nausea and vomiting. Physical Exam Vital Signs: Temp Pulse Resp BP Pulse Ox 98.7 F 106 H 16 136/79 H 97 08/22/16 00:03 08/22/16 00:03 08/22/16 00:03 08/22/16 00:03 08/22/16 00:03 Intake & Output 08/21/16 08/22/16 08/23/16 06:59 06:59 06:59 Intake Total 840 Balance 840 Weight 63.8 kg 60.6 kg General appearance: PRESENT: no acute distress, well-developed, well-nourished Head exam: PRESENT: atraumatic, normocephalic Eye exam: PRESENT: conjunctiva pink, EOMI, PERRLA. ABSENT: scleral icterus Ear exam: PRESENT: normal external ear exam Mouth exam: PRESENT: moist, tongue midline Neck exam: ABSENT: carotid bruit, JVD, lymphadenopathy, thyromegaly Respiratory exam: PRESENT: clear to auscultation bre. ABSENT: rales, rhonchi, wheezes Cardiovascular exam: PRESENT: RRR. ABSENT: diastolic murmur, rubs, systolic murmur Pulses: PRESENT: normal dorsalis pedis pul Vascular exam: PRESENT: normal capillary refill GI/Abdominal exam: PRESENT: normal bowel sounds, soft. ABSENT: distended, guarding, mass, organolmegaly, rebound, tenderness Rectal exam: PRESENT: deferred Extremities exam: PRESENT: full ROM. ABSENT: calf tenderness, clubbing, pedal edema Neurological exam: PRESENT: alert, awake, oriented to person, oriented to place , oriented to time, oriented to situation, CN II-XII grossly intact. ABSENT: motor sensory deficit Psychiatric exam: PRESENT: appropriate affect, normal mood. ABSENT: homicidal ideation, suicidal ideation Skin exam: PRESENT: dry, intact, warm. ABSENT: cyanosis, rash Results Laboratory Results: 08/21/16 05:15 08/21/16 14:55 Urine Color YELLOW Urine Appearance CLEAR Urine pH 8.0 Ur Specific [place] 1.005 Urine Protein NEGATIVE Urine Glucose (UA) NEGATIVE Urine Ketones NEGATIVE Urine Blood NEGATIVE Urine Nitrite NEGATIVE Ur Leukocyte Esterase NEGATIVE Urine WBC (Auto) 0 Urine RBC (Auto) 0 Impressions: Acute Abdomen Series 08/17/16 22:03 IMPRESSION: NO RADIOGRAPHIC EVIDENCE FOR ACUTE ABDOMINAL DISEASE. Extensive nodular lung lesions consistent with previously suspected metastases. Assessment & Plan - Diagnosis (1) Obstruction of intestine or colon Qualifiers: Intestinal obstruction type: other intestinal obstruction Qualified Code(s): K56.69 - Other intestinal obstruction Is this a current diagnosis for this admission?: YesPlan: Fully resolved now, patient not having a little bit too much output, have recommended to hold the amitaza, told nurse to go ahead and given the prescription of Dr. Rosales writes it. But not to fill it. We will see him back next week to see how he is doing. (2) Malignant neoplasm of descending colon Is this a current diagnosis for this admission?: YesPlan: DC home today, further chemotherapy probably restarted next week. - Time Time Spent with patient: 25-34 minutes Critical Time spent with patient: 25-34 minutes Anticipated discharge: Home
--- NOTE | 2016-08-22 08:22 | PDOC DISCHARGE SUMMARY ---
General - Admit/Disc Date/PCP Admission Date/Primary Care Provider: 08/19/16 14:00 Discharge Date: 08/22/16 - Discharge Diagnosis (1) Malignant neoplasm of descending colon Is this a current diagnosis for this admission?: YesSummary: added fentanyl. Vomited 6 times last pm. Eatilng now. (2) Constipation Is this a current diagnosis for this admission?: YesSummary: colostomy started working on multiple laxitives. Now diarrhea. Judi stopped them all. (3) Hyponatremia Is this a current diagnosis for this admission?: YesSummary: Na133. Got saline - Additional Information Resuscitation Status: Full Code Discharge Diet: As Tolerated Discharge Activity: Activity As Tolerated Home Medications: Atorvastatin Calcium [Lipitor 10 mg Tablet] 10 mg PO DAILY 08/18/16 Levothyroxine Sodium [Synthroid] 137 mcg PO DAILY 08/18/16 Lisinopril [Prinivil] 20 mg PO DAILY 08/18/16 Oxycodone HCl [Oxycodone HCl 10 MG Tablet] 10 mg PO Q6HP PRN 08/18/16 Fluticasone Propionate [Flonase Nasal [place] 50 Mcg/[place] 16 gm] 2 spray NASL DAILYP PRN #0 spray.pump 08/21/16 Fentanyl [Duragesic 50 Mcg/Hr Transdermal Patch] 1 each TD Q3DAYS #10 patch.[id number] 08/22/16 History of Present Illness History of Present Illness: VINCENT LEWIS is a 55 year old male Presents to the emergency department complaining of 2 days of worsening abdominal pain, decreased by mouth intake, increased fatigue, and decreased to no colostomy output. The patient has stage IV colon cancer, status post exploratory laparotomy, colectomy, diverting colostomy January [address] Griffith. He is been undergoing chemotherapy by Dr. Plummer the last 7 months. Last chemo 12d ago. RUQ pain is persistant. Other quadrants are crampy. Vomited 3 times yesterday. Transient diarrhea changed to constipation 2d ago. Hospital Course Hospital Course: see above Physical Exam Vital Signs: Temp Pulse Resp BP Pulse Ox 98.7 F 106 H 16 136/79 H 97 08/22/16 00:03 08/22/16 00:03 08/22/16 00:03 08/22/16 00:03 08/22/16 00:03 Intake & Output 08/20/16 08/21/16 08/22/16 07:59 07:59 07:59 Intake Total 5031 840 Balance 5031 840 Weight 139 lb 8.842 oz 140 lb 10.479 oz 133 lb 9.602 oz General appearance: PRESENT: no acute distress Respiratory exam: PRESENT: clear to auscultation bre Cardiovascular exam: ABSENT: diastolic murmur, irregular rhythm, systolic murmur GI/Abdominal exam: PRESENT: organolmegaly - tender liver to umbilicus, tenderness Extremities exam: ABSENT: pedal edema Neurological exam: PRESENT: oriented to situation Psychiatric exam: PRESENT: appropriate affect Results Laboratory Results: 08/21/16 05:15 08/21/16 14:55 Urine Color YELLOW Urine Appearance CLEAR Urine pH 8.0 Ur Specific [place] 1.005 Urine Protein NEGATIVE Urine Glucose (UA) NEGATIVE Urine Ketones NEGATIVE Urine Blood NEGATIVE Urine Nitrite NEGATIVE Ur Leukocyte Esterase NEGATIVE Urine WBC (Auto) 0 Urine RBC (Auto) 0 Impressions: Acute Abdomen Series 08/17/16 22:03 IMPRESSION: NO RADIOGRAPHIC EVIDENCE FOR ACUTE ABDOMINAL DISEASE. Extensive nodular lung lesions consistent with previously suspected metastases. Plan Discharge Plan: home. Ov 5d DrMan. 6d me
[2016-08-22] MEDS: LEVOTHYROXINE SODIUM 0.112 MG TABLET PO SCH (09:43)
[2016-08-22 09:54] VITALS: BP 134/74
== END 2016-08-22 10:00 | disposition home or self-care (01) | DRG 375 ==
LOC: ER 20:54 → UNDOADMOB 08-18 01:18 → EH 08-18 01:18 → 4S 08-18 03:49 → EH 08-18 03:49 → UNDOADMOB 08-18 05:15 → EH 08-18 05:15 → 4S 08-18 05:15 → OBSVTOIN 08-19 14:00
PROVIDERS: ADMIT Family Medicine; ATTEND Family Medicine
DX: C18.6 Malignant neoplasm of descending colon (principal); K56.69 Other intestinal obstruction; E87.1 Hypo-osmolality and hyponatremia; K59.00 Constipation, unspecified; R00.0 Tachycardia, unspecified; I10 Essential (primary) hypertension; Z93.3 Colostomy status
CPT/HCPCS: 36415; 74022; 80048; 80053; 81001; 83690; 85025; 87040; 87086; 96361; 96374; 99285; G0378; J1170; J2405; J3490; J7030

== ENCOUNTER → 2016-10-02 | Outpatient (CLI) | payer BC ==
--- NOTE | 2016-10-02 09:53 | RADIOLOGY REPORT (SQ) ---
EXAM DESCRIPTION: CT CHEST WITH; CT ABD/PELVIS WITH IV ONLY COMPLETED DATE/TIME: 10/02/2016 9:08 am REASON FOR STUDY: COLON CANCER C18.6 MALIGNANT NEOPLASM OF DESCENDING COLON COMPARISON: CT abdomen pelvis 12/25/2015 CT chest abdomen pelvis 05/01/2016, 08/01/2016 CONTRAST TYPE AND DOSE: 68mL Isovue 370- low osmolar. RENAL FUNCTION: 0.4 TECHNIQUE: CT scan of the chest performed using helical scanning technique with dynamic intravenous contrast injection. Images reviewed with lung, soft tissue and bone windows. Reconstructed coronal a nd sagittal MPR images reviewed. All images stored on PACS. CT scan of the abdomen and pelvis performed with intravenous and without oral contrastusing helical s marely technique with dynamic intravenous contrast injection. Images reviewed with lung, soft tissu e and bone windows. Reconstructed coronal and sagittal MPR images reviewed. Delayed images for eval uation of the urinary system also acquired and evaluated. All images stored on PACS. All CT scanners at this facility use dose modulation, iterative reconstruction, and/or weight based d osing when appropriate to reduce radiation dose to as low as reasonably achievable (ALARA). [facility]: Dose Right [facility]: CareDose [facility]: Dose Right [facility]: Teradose 4D [facility]: [employer] RADIATION DOSE: 4.43; 12.21 mGy. LIMITATIONS: No oral contrast FINDINGS: CHEST: LUNGS AND PLEURA: Multiple lung metastatic lesions are present, similar in number over the series of exams. Index lesions are as follows: Right upper lobe 1.2 cm diameter image 44 (was 1.2 cm 08/01/2016, 0.9 cm 05/01/2016) Left upper lobe 1.3 cm diameter image 46 (was 1.2 cm 08/01/2016, 1.1 cm 05/01/2016). Right lower lobe 1.9 cm image 73 (was 1.7 cm on 08/01/2016 and 05/01/2016) 3.3 cm left posterior costophrenic sulcus image 100 (2.8 cm on 08/01/2016 and 05/01/2016) No pleural effusions. No pneumothorax. HILAR AND MEDIASTINAL STRUCTURES: No identified masses or abnormal nodes. HEART AND VASCULAR STRUCTURES: No aneurysm or dissection. No central pulmonary emboli. No pericardi al effusion. HARDWARE: Right jugular central line tip superior vena cava THYROID AND OTHER SOFT TISSUES: No masses. No adenopathy. BONES: No significant finding. OTHER: No other significant finding. ABDOMEN AND PELVIS: LIVER: There are multiple liver metastatic lesions similar compared to 08/01/2016 and 05/01/2016. Ind ex lesions are as follows: Largest right lobe liver mass 11.7 cm (was 10.8 cm 08/01/2016, and 10.6 cm on 05/01/2016) Largest left lobe liver lesion is 10 cm (was 10 cm 08/01/2016 and 9 cm on 05/01/2016) SPLEEN: Normal size. No focal lesions. PANCREAS: No masses. No significant calcifications. No adjacent inflammation or peripancreatic fluid collections. Pancreatic duct not dilated. GALLBLADDER: Contracted around calcified stones. ADRENAL GLANDS: No significant masses or asymmetry. RIGHT KIDNEY AND URETER: No solid masses. No significant calcification. No hydronephrosis or hydroure ter. LEFT KIDNEY AND URETER: No solid masses. No significant calcification. No hydronephrosis or hydrouret er. AORTA AND VESSELS: No aneurysm. No dissection. Renal arteries, SMA, celiac without stenosis. RETROPERITONEUM: No retroperitoneal adenopathy, hemorrhage or masses. BOWEL AND PERITONEAL CAVITY: No masses or inflammatory changes. New small amount of ascites in the p ariela. Left lower quadrant colostomy without stomal hernia. APPENDIX: Not well seen ABDOMINAL WALL: No masses. No hernias. BONES: No significant or acute findings. PELVIS: No ascites in the pelvic cul-de-sac. No pelvic masses or adenopathy. IMPRESSION: Slight increase in size of lung and liver lesions as compared to the previous exams New small amount of ascites in the pelvic cul-de-sac TECHNICAL DOCUMENTATION: JOB ID: [id number] Quality ID # [id number]: Final reports with documentation of one or more dose reduction techniques (e.g., Au tomated exposure control, adjustment of the mA and/or kV according to patient size, use of iterative reconstruction technique) 2010 [employer]- All Rights Reserved
== END ==
LOC: RAD 08:08
PROVIDERS: ATTEND Internal Medicine
DX: C18.6 Malignant neoplasm of descending colon (principal); C78.00 Secondary malignant neoplasm of unspecified lung; C78.7 Secondary malignant neoplasm of liver and intrahepatic bile duct
CPT/HCPCS: 71260; 74177

== ENCOUNTER 2016-11-18 12:34 | Emergency (ER) | payer BC ==
[2016-11-18 15:12] LABS: ABSOLUTE BASOPHILS # (AUTO) 0.1 10^3/uL (0.0-0.2); ABSOLUTE LYMPHOCYTES (AUTO) 0.7 10^3/uL (0.5-4.7); ABSOLUTE MONOCYTES (AUTO) 0.4 10^3/uL (0.1-1.4); ABSOLUTE NEUT (AUTO) 10.4 10^3/uL (1.7-8.2); BASOPHILS % (AUTO) 0.5 % (0-2); EOSINOPHILS % (AUTO) 0.2 % (0-6); HEMATOCRIT 35.2 % (37.9-51.0); HEMOGLOBIN 11.4 g/dL (13.5-17.0); LYMPHOCYTES % (AUTO) 5.9 % (13-45); MEAN CORPUSCULAR HEMOGLOBIN 27.9 pg (27.0-33.4); MEAN CORPUSCULAR HGB CONC 32.5 g/dL (32.0-36.0); MEAN CORPUSCULAR VOLUME 86 fl (80-97); MONOCYTES % (AUTO) 3.7 % (3-13); RED CELL DISTRIBUTION WIDTH 20.3 % (11.5-14.0); SEGMENTED NEUTROPHILS % (AUTO) 89.7 % (42-78); WHITE BLOOD COUNT 11.6 10^3/uL (4.0-10.5)
[2016-11-18 15:23] LABS: PROTHROMBIN TIME 16.2 SEC (11.4-15.4)
[2016-11-18 15:25] LABS: ALANINE AMINOTRANSFERASE 95 U/L (21-72); ALKALINE PHOSPHATASE 1407 U/L (38-126); ANION GAP 5 (5-19); ASPARTATE AMINO TRANSFERASE 319 U/L (17-59); BILIRUBIN,DIRECT 0.7 mg/dL (0.0-0.4); BLOOD UREA NITROGEN 19 mg/dL (7-20); CALCIUM 8.5 mg/dL (8.4-10.2); CARBON DIOXIDE 29 mmol/L (22-30); CHLORIDE 98 mmol/L (98-107); CREATININE RESULT 0.49 mg/dL (0.52-1.25); GLUCOSE 87 mg/dL (75-110); POTASSIUM 3.2 mmol/L (3.6-5.0); SODIUM 131.7 mmol/L (137-145); TOTAL PROTEIN 6.4 g/dL (6.3-8.2)
[2016-11-18 15:42] LABS: APPEARANCE,URINE CLEAR; BILIRUBIN,URINE NEGATIVE (NEGATIVE); GLUCOSE, URINE NEGATIVE (NEGATIVE); KETONES,URINE NEGATIVE (NEGATIVE); LEUKOCYTE ESTERASE,URINE NEGATIVE (NEGATIVE); NITRITE,URINE NEGATIVE (NEGATIVE); PROTEIN,URINE NEGATIVE (NEGATIVE); URINE SPECIFIC GRAVITY 1.015
[2016-11-18] MEDS ORDERED: RINGERS SOLUTION,LACTATED 500 ML IV PRN (16:02)
[2016-11-18] MEDS ORDERED: MORPHINE SULFATE 10 MG/ML INJ IV ONE (16:02)
--- NOTE | 2016-11-18 17:04 | ER Document Report ---
ED GI/ - General Chief Complaint: Upper Abdominal Pain Stated Complaint: ABDOMINAL PAIN Time Seen by Provider: 11/18/16 13:36 Mode of Arrival: Medic Information source: Patient Notes: Patient is a 55-year-old cancer patient with colon cancer, liver metastases and lung metastases who presents to the ER today for abdominal pain 1 week. Patient also has distention of the abdomen per sister. Patient has history of mental retardation, so is not entirely consistent with describing his pain. TRAVEL OUTSIDE OF THE [place] IN LAST 30 DAYS: No - Related Data Allergies/Adverse Reactions: No Known Allergies Allergy (Unverified 01/01/16 12:51) Past Medical History - General Information source: Patient - Social History Smoking Status: Never Smoker Chew tobacco use (# tins/day): No Drug Abuse: None Family History: CVA, Hypertension, Malignancy - sister colon Patient has suicidal ideation: No Patient has homicidal ideation: No - Past Medical History Cardiac Medical History: Reports: Hx Hypertension Denies: Hx Coronary Artery Disease, Hx Heart Attack Pulmonary Medical History: Denies: Hx Asthma, Hx Bronchitis, Hx COPD, Hx Pneumonia Neurological Medical History: Denies: Hx Cerebrovascular Accident, Hx Seizures Endocrine Medical History: Reports: Hx Hypothyroidism Renal/ Medical History: Denies: Hx Peritoneal Dialysis Malignancy Medical History: Reports Hx Colorectal Cancer Musculoskeltal Medical History: Denies Hx Arthritis Psychiatric Medical History: Denies: Hx Depression Past Surgical History: Reports: Other - Exploratory laparotomy , sigmoid colectomy, colostomy, port placement - Immunizations Hx Diphtheria, Pertussis, Tetanus Vaccination: No Review of Systems - Review of Systems Constitutional: No symptoms reported EENT: No symptoms reported Cardiovascular: No symptoms reported Respiratory: See HPI Gastrointestinal: See HPI Genitourinary: No symptoms reported Male Genitourinary: No symptoms reported Musculoskeletal: No symptoms reported Skin: No symptoms reported Hematologic/Lymphatic: No symptoms reported Neurological/Psychological: No symptoms reported Physical Exam - Vital signs Vitals: Temp Pulse Resp BP Pulse Ox 98.4 F 96 16 146/105 H 97 11/18/16 12:44 11/18/16 12:44 11/18/16 12:44 11/18/16 12:44 11/18/16 12:44 - Notes Notes: PHYSICAL EXAMINATION: GENERAL: Chronically ill-appearing, weak appearing, but in no acute distress. HEAD: Atraumatic, normocephalic. EYES: Pupils equal round and reactive to light, extraocular movements intact, sclera anicteric, conjunctiva are normal. ENT: ear canals without erythema or foreign body, TMs pearly bains with good bony landmarks, nares patent, oropharynx clear without exudates. Moist mucous membranes. NECK: Normal range of motion, supple without lymphadenopathy LUNGS: CTAB and equal. No wheezes rales or rhonchi. HEART: Regular rate and rhythm without murmurs ABDOMEN: distended with ascites, positive fluid wave, otherwise Soft, no tenderness. No guarding, no rebound BACK: no vertebral tenderness, normal ROM GI/: no CVA tenderness EXTREMITIES: Normal range of motion, no pitting edema. No cyanosis. NEUROLOGICAL: Cranial nerves grossly intact. Normal sensory/motor exams. PSYCH: Normal mood, normal affect. SKIN: Warm, Dry, normal turgor, no rashes or lesions noted Course - Re-evaluation Re-evalutation: 11/18/16 17:02 Lab work is unremarkable and at his baseline today, even slightly elevated white count which is the same as it was in August. I did speak with patient's oncologist, Dr. Rod, who encourages pain medication, fluid resuscitation and discharged home to follow-up with him in the office. Patient's vital signs are stable here today. He does not have peritonitis today. He was completely nontender to exam. 11/18/16 17:03 - Vital Signs Vital signs: Temp Pulse Resp BP Pulse Ox 98.4 F 96 22 H 135/96 H 95 11/18/16 12:44 11/18/16 12:44 11/18/16 15:01 11/18/16 15:01 11/18/16 15:01 - Laboratory Result Diagrams: 11/18/16 14:55 11/18/16 14:55 Laboratory results interpreted by me: 11/18/16 11/18/16 11/18/16 14:55 14:55 14:55 WBC 11.6 H RBC 4.10 L Hgb 11.4 L Hct 35.2 L RDW 20.3 H Seg Neutrophils % 89.7 H Lymphocytes % 5.9 L Absolute Neutrophils 10.4 H PT Sodium 131.7 L Potassium 3.2 L Creatinine 0.49 L Direct Bilirubin 0.7 H AST 319 H ALT 95 H Alkaline Phosphatase 1407 H Albumin 2.0 L Urine Urobilinogen 2.0 H 11/18/16 15:05 WBC RBC Hgb Hct RDW Seg Neutrophils % Lymphocytes % Absolute Neutrophils PT 16.2 H Sodium Potassium Creatinine Direct Bilirubin AST ALT Alkaline Phosphatase Albumin Urine Urobilinogen Discharge - Discharge Clinical Impression: History of colon cancer, stage IV Abdominal pain Qualifiers: Abdominal location: generalized Qualified Code(s): R10.84 - Generalized abdominal pain Condition: Stable Disposition: HOME, SELF-CARE Additional Instructions: Return immediately for any new or worsening symptoms. Follow up with primary care provider, call tomorrow to make followup appointment. Prescriptions: Oxycodone HCl [Oxycodone HCl 10 MG Tablet] 1 - 2 tab PO Q6H PRN #15 tablet PRN Reason: PAIN Referrals: MIGUEL SIN MD [Primary Care Provider] - Follow up as needed LIANNE ROD MD [ACTIVE STAFF] - Follow up as needed
[2016-11-18 17:39] VITALS: BP 147/95
== END 2016-11-18 17:39 | disposition home or self-care (01) ==
LOC: ER 12:34
DX: C18.9 Malignant neoplasm of colon, unspecified (principal); C78.7 Secondary malignant neoplasm of liver and intrahepatic bile duct; C78.00 Secondary malignant neoplasm of unspecified lung; R10.84 Generalized abdominal pain; R18.8 Other ascites; D72.829 Elevated white blood cell count, unspecified; F79 Unspecified intellectual disabilities; I10 Essential (primary) hypertension; Z90.49 Acquired absence of other specified parts of digestive tract
CPT/HCPCS: 99284; 96361; 96374; 36415; 85025; 85610; 80053; 81001; J2270; J7120

== ENCOUNTER → 2016-12-24 | Outpatient (CLI) | payer BC ==
--- NOTE | 2016-12-24 14:42 | RADIOLOGY REPORT (SQ) ---
EXAM DESCRIPTION: CT CHEST WITH; CT ABD/PELVIS WITH IV ONLY COMPLETED DATE/TIME: 12/24/2016 11:07 am REASON FOR STUDY: MAL SAMMI OF DESCENDING COLON C18.6 MALIGNANT NEOPLASM OF DESCENDING COLON COMPARISON: CT chest abdomen and pelvis 10/02/2016, 08/01/2016, 05/01/2016 CT chest 12/25/2015 CONTRAST TYPE AND DOSE: contrast/concentration: Isovue 370.00 mg/ml; Total Contrast Delivered: 66.0 ml; Total Saline Delivered: 65.0 ml RENAL FUNCTION: Creatinine 0.5 TECHNIQUE: CT scan of the chest performed using helical scanning technique with dynamic intravenous contrast injection. Images reviewed with lung, soft tissue and bone windows. Reconstructed coronal a nd sagittal MPR images reviewed. All images stored on PACS. CT scan of the abdomen and pelvis performed with intravenous and without oral contrastusing helical s marely technique with dynamic intravenous contrast injection. Images reviewed with lung, soft tissu e and bone windows. Reconstructed coronal and sagittal MPR images reviewed. Delayed images for eval uation of the urinary system also acquired and evaluated. All images stored on PACS. All CT scanners at this facility use dose modulation, iterative reconstruction, and/or weight based d osing when appropriate to reduce radiation dose to as low as reasonably achievable (ALARA). [facility]: Dose Right [facility]: CareDose [facility]: Dose Right [facility]: Teradose 4D [facility]: [employer] RADIATION DOSE: Up-to-date CT equipment and radiation dose reduction techniques were employed. CTDIv ol: 4.6 - 5.4 mGy. DLP: 844 mGy-cm. . LIMITATIONS: None. FINDINGS: CHEST: LUNGS AND PLEURA: Interval increase in size of multiple pulmonary metastatic lesions since 10/02/2016. Index lesions are as follows: Right upper lobe 1.3 cm axial image 45 (was 1.2 cm on 10/02/2016). Left upper lobe 1.5 cm image 37 (was 1.3 cm on 10/02/2016). Left posterior costophrenic sulcus 3.5 cm in size, axial image 86 (was 3.3 cm on 10/02/2016). HILAR AND MEDIASTINAL STRUCTURES: No identified masses or abnormal nodes. HEART AND VASCULAR STRUCTURES: No aneurysm or dissection. No central pulmonary emboli. No pericardi al effusion. HARDWARE: Right jugular central line tip in the right atrium THYROID AND OTHER SOFT TISSUES: No masses. No adenopathy. BONES: There is a less than 1 cm lytic lesion in the T9 spinous process, sagittal image 34 OTHER: No other significant finding. ABDOMEN AND PELVIS: LIVER: Interval progression of disease in the liver since 10/02/2016 to the point where metastasic lesi ons are confluent, it is difficult to measure an index lesion. Normal enhancement of the portal vein . SPLEEN: Mildly enlarged, 14 cm in length PANCREAS: No masses. No significant calcifications. No adjacent inflammation or peripancreatic fluid collections. Pancreatic duct not dilated. GALLBLADDER: Contracted around calcified stones ADRENAL GLANDS: No significant masses or asymmetry. RIGHT KIDNEY AND URETER: No solid masses. No significant calcification. No hydronephrosis or hydroure ter. LEFT KIDNEY AND URETER: No solid masses. No significant calcification. No hydronephrosis or hydrouret er. AORTA AND VESSELS: No aneurysm. No dissection. Renal arteries, SMA, celiac without stenosis. RETROPERITONEUM: No retroperitoneal adenopathy, hemorrhage or masses. BOWEL AND PERITONEAL CAVITY: There is interval development of a moderate to large amount of ascites. This is new compared to 10/02/[address] evidence of bowel obstruction. APPENDIX: Not identified ABDOMINAL WALL: No masses. No hernias. BONES: No significant or acute findings. OTHER: No other significant finding. IMPRESSION: Progression of metastatic disease with increase in size of pulmonary nodules and liver l esions Interval development of a moderate to large amount of ascites TECHNICAL DOCUMENTATION: JOB ID: [id number] Quality ID # [id number]: Final reports with documentation of one or more dose reduction techniques (e.g., Au tomated exposure control, adjustment of the mA and/or kV according to patient size, use of iterative reconstruction technique) 2010 [employer]- All Rights Reserved
== END ==
LOC: RAD 10:12
PROVIDERS: ATTEND Internal Medicine
DX: C18.6 Malignant neoplasm of descending colon (principal)
CPT/HCPCS: 71260; 74177; 82565

== ENCOUNTER 2016-12-30 07:43 | Day surgery (SDC) | payer BC ==
[2016-12-30 08:14] LABS: HEMATOCRIT 32.9 % (37.9-51.0); HGB HCT DIFFERENCE 0.1; MEAN CORPUSCULAR HEMOGLOBIN 29.6 pg (27.0-33.4); MEAN CORPUSCULAR HGB CONC 33.5 g/dL (32.0-36.0); MEAN CORPUSCULAR VOLUME 88 fl (80-97); RED BLOOD COUNT 3.73 10^6/uL (4.35-5.55); RED CELL DISTRIBUTION WIDTH 21.2 % (11.5-14.0); WHITE BLOOD COUNT 11.8 10^3/uL (4.0-10.5)
[2016-12-30 08:28] LABS: PARTIAL THROMBOPLASTIN TIME 43.7 SEC (23.5-35.8)
[2016-12-30 08:41] LABS: BLOOD UREA NITROGEN 15 mg/dL (7-20); CREATININE RESULT 0.53 mg/dL (0.52-1.25)
[2016-12-30 12:40] LABS: FLUID TYPE PERITONEAL
[2016-12-30 12:41] LABS: FLUID APPEARANCE HAZY; FLUID RBC AVERAGE 47.5; FLUID RBC SIDE 1 49; FLUID RBC SIDE 2 46
[2016-12-30 12:42] LABS: FLUID RBC DILUENT USED NONE USED; FLUID RBC DILUTION FACTOR 1; TOTAL RBC SQUARES COUNTED FLD 225
[2016-12-30 13:11] VITALS: BP 112/82
--- NOTE | 2016-12-30 15:18 | RADIOLOGY REPORT (SQ) ---
EXAM DESCRIPTION: U/S ABD PARACENTESIS COMPLETED DATE/TIME: 12/30/2016 11:21 am REASON FOR STUDY: ASCITES COMPARISON CT abdomen pelvis 12/24/2016 LIMITATIONS: None. PROCEDURE: After obtaining informed consent, the patient was brought to the ultrasound suite. The p rocedure was performed with the patient on a gurney. Ultrasound was used to identify a prominent poc ket of ascites in the right lower quadrant. An appropriate access site was selected. The patient wa s prepped and draped in usual sterile fashion. The access site was anesthetized with 5.5 mL 1% lido frannie. A [id number] needle was advanced into the fluid. After aspiration of fluid the needle, the catheter was advanced off the needle into the fluid. A total of 6,000 mL of clear yellow fluid w as removed. The patient tolerated the procedure well left the department in satisfactory condition. Fluid was sent for testing as per Dr. Plummer IMPRESSION: Successful ultrasound-guided diagnostic and therapeutic paracentesis COMMENT: Patient medication list reviewed: Yes- Quality ID# [id number]:Eligible professional attests to doc umenting in the medical record they obtained, updated, or reviewed the patient's current medications. Quality ID #76: The patient was prepped and draped using maximum sterile barrier technique including cap, mask, sterile gown, sterile gloves, a large sterile sheet, hand hygiene, and 2% Chlorhexidine fo r cutaneous antisepsis. When ultrasound is used, sterile ultrasound techniques are followed requiring sterile gel and sterile probes. Quality ID #145: Final reports for procedures using fluoroscopy that document radiation exposure rodríguez marlon, or exposure time and number of fluorographic images (if radiation exposure indices are not avail able) TECHNICAL DOCUMENTATION: JOB ID: [id number] [employer]- All Rights Reserved
== END 2016-12-30 12:45 | disposition home or self-care (01) ==
LOC: RAD 07:43
PROVIDERS: ATTEND Internal Medicine
PROC: 0W9G3ZZ Drainage of Peritoneal Cavity, Percutaneous Approach (ICD-10-PCS; principal; 2016-12-30)
DX: R18.0 Malignant ascites (principal); C18.6 Malignant neoplasm of descending colon
CPT/HCPCS: 36415; 49083; 82565; 84520; 85027; 85610; 85730; 87070; 87075; 87205; 88305; 88341; 88342; 89050

== ENCOUNTER 2017-01-09 14:56 | Inpatient (IN) | payer BC ==
--- NOTE | 2017-01-09 15:19 | ER Document Report ---
ED Fever - General Stated Complaint: FEVER Time Seen by Provider: 01/09/17 15:18 Mode of Arrival: Medic Information source: Patient Notes: 56 yo male with stage 4 colon cancer, got to doctors dr. Decker to have chemo box removed and was not feeling well, was given IV fluid through his port. Started having burning right leg from thigh to knee and midline abdomen pain with recurring ascites.. Had paracentisis on thursday, [address] Decker sent him to ER due to low blood pressure and struggling to breathe. Pt is full code, wants to be resusitated at this time, but plans to talk with his sisters about a don not resusitate order. TRAVEL OUTSIDE OF THE [place] IN LAST 30 DAYS: No - Related Data Allergies/Adverse Reactions: No Known Allergies Allergy (Verified 01/09/17 15:34) Home Medications: Current Home Medications Ferrous Sulfate [Feosol 325 mg Tablet] 325 mg PO DAILY 01/09/17 [History] Levothyroxine Sodium [Synthroid] 150 mcg PO DAILY 01/09/17 [History] Lisinopril 20 mg PO DAILY 01/09/17 [History] Metoprolol Succinate [Toprol XL 100 mg Tablet] 100 mg PO DAILY 01/09/17 [History ] Simvastatin [Zocor 40 mg Tablet] 40 mg PO QHS 01/09/17 [History] Past Medical History - General Information source: Patient - Social History Smoking Status: Current Every Day Smoker Frequency of alcohol use: None Drug Abuse: None Lives with: Family - mother Family History: CVA, Hypertension, Malignancy - sister colon - Past Medical History Cardiac Medical History: Reports: Hx Hypertension Endocrine Medical History: Reports: Hx Hypothyroidism Renal/ Medical History: Denies: Hx Peritoneal Dialysis Malignancy Medical History: Reports Hx Colorectal Cancer - stage 4, mets to the liver Psychiatric Medical History: Denies: Hx Depression Past Surgical History: Reports: Other - Exploratory laparotomy , sigmoid colectomy, colostomy, port placement - Immunizations Hx Diphtheria, Pertussis, Tetanus Vaccination: No Review of Systems - Review of Systems Constitutional: See HPI EENT: No symptoms reported Cardiovascular: No symptoms reported Respiratory: See HPI Gastrointestinal: See HPI Genitourinary: No symptoms reported Male Genitourinary: No symptoms reported Musculoskeletal: No symptoms reported Skin: No symptoms reported Hematologic/Lymphatic: No symptoms reported Neurological/Psychological: No symptoms reported Physical Exam - Vital signs Vitals: Temp Pulse Resp BP Pulse Ox 98.3 F 115 H 20 136/93 H 97 01/09/17 15:00 01/09/17 15:00 01/09/17 15:00 01/09/17 15:00 01/09/17 15:00 Interpretation: Tachycardic, Tachypneic, Febrile - General General appearance: Alert, Other - chronically ill, dry In distress: Moderate - rr 36, he does state that he gets this way prior to ascites fluid removal on thursday. - HEENT Head: Normocephalic, Atraumatic Eyes: Normal Conjunctiva: Normal. No: Icteric Pupils: PERRL Mucous membranes: Dry Pharynx: Erythema Neck: Supple. No: Lymphadenopathy, Thyromegally - Respiratory Respiratory status: No respiratory distress Chest status: Nontender Breath sounds: Normal Chest palpation: Normal - Cardiovascular Rhythm: Regular Heart sounds: Normal auscultation Murmur: No - Abdominal Inspection: Other - left colostomy Distension: Distended, Tympanitic, Fluid wave Bowel sounds: Normal Tenderness: Tender - midline Organomegaly: Other - unable to assess due to ascites - Back Back: Normal, Nontender - Extremities General upper extremity: Normal inspection, Nontender, Normal color, Normal ROM , Normal temperature General lower extremity: Normal inspection, Nontender, Normal color, Normal ROM , Normal temperature, Normal weight bearing. No: Stephan's sign - Neurological Neuro grossly intact: Yes Cognition: Normal, Inattentive Orientation: AAOx4 [place] Coma Scale Eye Opening: Spontaneous [place] Coma Scale Verbal: Oriented Manisha Coma Scale Motor: Obeys Commands Manisha Coma Scale Total: 15 Speech: Normal Motor strength normal: LUE, RUE, LLE, RLE Sensory: Normal - Psychological Associated symptoms: Normal affect, Normal mood - Skin Skin Temperature: Warm Skin Moisture: Dry Skin Color: Normal Skin irregularity: negative: Rash Course - Re-evaluation Re-evalutation: 01/09/17 17:54 Dr. Mitchell will admit the patient for sepsis, dehydration, ascites, fever, metastatic cancer. The patient at this time is a full code and Dr. Sin is aware that I spoke with the patient and 1 of his sisters about discussions for hospice or DNR. - Vital Signs Vital signs: Temp Pulse Resp BP Pulse Ox 98.3 F 115 H 24 H 136/97 H 99 01/09/17 15:00 01/09/17 15:00 01/09/17 16:01 01/09/17 16:01 01/09/17 16:01 - Laboratory Result Diagrams: 01/09/17 15:15 01/09/17 15:15 Laboratory results interpreted by me: 01/09/17 01/09/17 01/09/17 15:15 15:15 16:13 WBC 14.4 H RBC 3.45 L Hgb 10.3 L Hct 31.5 L RDW 19.4 H Seg Neuts % (Manual) 96 H Lymphocytes % (Manual) 3 L Monocytes % (Manual) 1 L Abs Neuts (Manual) 13.8 H Abs Lymphs (Manual) 0.4 L VBG pH 7.47 H VBG pCO2 34.5 L Sodium 135.6 L Creatinine 0.51 L Direct Bilirubin 0.7 H AST 203 H Alkaline Phosphatase 799 H Total Protein 6.1 L Albumin 2.0 L Urine Urobilinogen Urine Ascorbic Acid 01/09/17 16:30 WBC RBC Hgb Hct RDW Seg Neuts % (Manual) Lymphocytes % (Manual) Monocytes % (Manual) Abs Neuts (Manual) Abs Lymphs (Manual) VBG pH VBG pCO2 Sodium Creatinine Direct Bilirubin AST Alkaline Phosphatase Total Protein Albumin Urine Urobilinogen 4.0 H Urine Ascorbic Acid 20 H Discharge - Discharge Clinical Impression: Metastatic cancer, dehydration, sepsis, anemia of chronic disease Fever Qualifiers: Fever type: due to other condition Qualified Code(s): R50.81 - Fever presenting with conditions classified elsewhere Ascites Qualifiers: Ascites type: malignant Qualified Code(s): R18.0 - Malignant ascites Condition: Fair Disposition: ADMITTED INPATIENT Admitting Provider: Bobby Unit Admitted: IMCU Referrals: MIGUEL SIN MD [Primary Care Provider] - Follow up as needed
[2017-01-09 15:54] LABS: HEMATOCRIT 31.5 % (37.9-51.0); HEMOGLOBIN 10.3 g/dL (13.5-17.0); HGB HCT DIFFERENCE -0.6; MEAN CORPUSCULAR HEMOGLOBIN 29.7 pg (27.0-33.4); MEAN CORPUSCULAR HGB CONC 32.6 g/dL (32.0-36.0); MEAN CORPUSCULAR VOLUME 91 fl (80-97); RED BLOOD COUNT 3.45 10^6/uL (4.35-5.55); RED CELL DISTRIBUTION WIDTH 19.4 % (11.5-14.0); WHITE BLOOD COUNT 14.4 10^3/uL (4.0-10.5)
[2017-01-09 15:55] LABS: ALANINE AMINOTRANSFERASE 59 U/L (21-72); ALKALINE PHOSPHATASE 799 U/L (38-126); ANION GAP 7 (5-19); ASPARTATE AMINO TRANSFERASE 203 U/L (17-59); BILIRUBIN,DIRECT 0.7 mg/dL (0.0-0.4); BILIRUBIN,TOTAL 0.9 mg/dL (0.2-1.3); BLOOD UREA NITROGEN 18 mg/dL (7-20); CALCIUM 8.6 mg/dL (8.4-10.2); CARBON DIOXIDE 28 mmol/L (22-30); CHLORIDE 101 mmol/L (98-107); CREATININE RESULT 0.51 mg/dL (0.52-1.25); GLUCOSE 101 mg/dL (75-110); POTASSIUM 4.3 mmol/L (3.6-5.0); SODIUM 135.6 mmol/L (137-145); TOTAL PROTEIN 6.1 g/dL (6.3-8.2)
[2017-01-09] MEDS ORDERED: NORMAL SALINE 1000 ML 1,000 ML IV ONE (16:09)
[2017-01-09] MEDS ORDERED: MORPHINE SULFATE 10 MG/ML INJ IV ONE ×2 (16:15→18:44)
[2017-01-09 16:16] LABS: BASOPHILS % (MANUAL) 0 % (0-2); EOSINOPHILS % (MANUAL) 0 % (0-6); LYMPHOCYTES % (MANUAL) 3 % (13-45); TOTAL CELLS COUNTED 100
[2017-01-09] MEDS ORDERED: ONDANSETRON HCL INJ/PF 4 MG/2 ML SDV IV ONE (16:16)
[2017-01-09 16:19] LABS: ANISOCYTOSIS 2+; BURR CELLS SLIGHT; OVALOCYTES SLIGHT; TOXIC GRANULATION SLIGHT
[2017-01-09 16:20] LABS: POIKILOCYTOSIS SLIGHT
[2017-01-09 16:30] LABS: VENOUS BLOOD BASE EXCESS 1.2 mmol/L; VENOUS BLOOD HCO3 24.4 mmol/L (20-32); VENOUS BLOOD PCO2 34.5 mmHg (35-63); VENOUS BLOOD PH 7.47 (7.30-7.42)
[2017-01-09 16:31] LABS: PARTIAL THROMBOPLASTIN TIME 33.2 SEC (23.5-35.8); PROTHROMBIN TIME 15.2 SEC (11.4-15.4)
[2017-01-09 17:41] LABS: APPEARANCE,URINE CLEAR; BILIRUBIN,URINE NEGATIVE (NEGATIVE); GLUCOSE, URINE NEGATIVE (NEGATIVE); KETONES,URINE NEGATIVE (NEGATIVE); LEUKOCYTE ESTERASE,URINE NEGATIVE (NEGATIVE); NITRITE,URINE NEGATIVE (NEGATIVE); PROTEIN,URINE NEGATIVE (NEGATIVE); URINE SPECIFIC GRAVITY 1.011
[2017-01-09] MEDS ORDERED: ERTAPENEM SODIUM INJ 1 GM VIAL IV ONE (17:48)
[2017-01-09] MEDS ORDERED: NORMAL SALINE 1000 ML 2,000 ML IV ONE (17:55)
--- NOTE | 2017-01-09 18:30 | RADIOLOGY REPORT (SQ) ---
EXAM DESCRIPTION: U/S ABD PARACENTESIS COMPLETED DATE/TIME: 01/09/2017 6:02 pm REASON FOR STUDY: ascites liver metastatic cancer and need fluid cul COMPARISON 12/30/2016 LIMITATIONS: None. PROCEDURE: After obtaining informed consent, the patient was brought to the ultrasound suite. The p rocedure was performed with the patient on a gurney. Ultrasound was used to identify a prominent poc ket of ascites in the right lower quadrant. An appropriate access site was selected. The patient wa s prepped and draped in usual sterile fashion. The access site was anesthetized with 3.5 mL 1% lido frannie. A [id number]-X-Kjmuhrkp needle was advanced into the fluid. After aspiration of fluid the needle, the catheter was advanced off the needle into the fluid. A total of 5,800 mL of clear yellow fluid w as removed. The patient tolerated the procedure well left the department in satisfactory condition. Fluid was sent for testing as per Umm Arreguin in the emergency room IMPRESSION: Successful ultrasound-guided diagnostic and therapeutic paracentesis COMMENT: Patient medication list reviewed: Yes- Quality ID# [id number]:Eligible professional attests to doc umenting in the medical record they obtained, updated, or reviewed the patient's current medications. Quality ID #76: The patient was prepped and draped using maximum sterile barrier technique including cap, mask, sterile gown, sterile gloves, a large sterile sheet, hand hygiene, and 2% Chlorhexidine fo r cutaneous antisepsis. When ultrasound is used, sterile ultrasound techniques are followed requiring sterile gel and sterile probes. Quality ID #145: Final reports for procedures using fluoroscopy that document radiation exposure rodríguez marlon, or exposure time and number of fluorographic images (if radiation exposure indices are not avail able) TECHNICAL DOCUMENTATION: JOB ID: [id number] [employer]- All Rights Reserved
[2017-01-09 18:35] LABS: FLUID APPEARANCE SLIGHTLY HAZY; FLUID TYPE PERITONEAL
[2017-01-09 18:36] LABS: FLUID RBC DILUENT USED NONE USED; FLUID RBC DILUTION FACTOR 1; FLUID RBC SIDE 1 32; FLUID RBC SIDE 2 34; TOTAL RBC SQUARES COUNTED FLD 225
--- NOTE | 2017-01-09 19:10 | RADIOLOGY REPORT (SQ) ---
EXAM DESCRIPTION: VENOUS UNILATERAL LOWER COMPLETED DATE/TIME: 01/09/2017 6:58 pm REASON FOR STUDY: left leg pain, hx cancer, COMPARISON: None. TECHNIQUE: Dynamic and static liu scale and color images acquired of the left leg venous system. Se lected spectral images acquired with additional compression and augmentation maneuvers. The contralat eral common femoral vein and saphenofemoral junction were also imaged. Images stored on PACS. LIMITATIONS: None. FINDINGS: COMMON FEMORAL: Normal phasicity, compression and augmentation. No visualized echogenic ma terial on liu scale. No defects on color images. FEMORAL: Normal compression and augmentation. No visualized echogenic material on liu scale. No defe cts on color images. POPLITEAL: Normal compression, augmentation. No visualized echogenic material on liu scale. No defec ts on color images. CALF VESSELS: Normal compression, augmentation. No visualized echogenic material on liu scale. No de fects on color images. GSV and SSV: Normal compression, augmentation. No visualized echogenic material on liu scale. No def ects on color images. ANY DEEP VENOUS INSUFFICIENCY: Not evaluated. ANY EVIDENCE OF POPLITEAL CYST: No. OTHER: No other significant finding. CONTRALATERAL COMMON FEMORAL VEIN AND SAPHENOFEMORAL JUNCTION: Normal phasicity, compression and augmentation. No visualized echogenic material on liu scale. No de fects on color images. IMPRESSION: NO EVIDENCE OF DVT OR SVT IN THE LEFT LEG. TECHNICAL DOCUMENTATION: JOB ID: [id number] [employer]- All Rights Reserved
--- NOTE | 2017-01-09 19:16 | RADIOLOGY REPORT (SQ) ---
EXAM DESCRIPTION: CHEST SINGLE VIEW COMPLETED DATE/TIME: 01/09/2017 6:58 pm REASON FOR STUDY: CHECK PORT FOR CT COMPARISON: None. EXAM PARAMETERS: NUMBER OF VIEWS: One view. TECHNIQUE: Single frontal radiographic view of the chest acquired. RADIATION DOSE: NA LIMITATIONS: None. FINDINGS: LUNGS AND PLEURA: Diffuse pulmonary metastatic lesions. No large pleural effusion. No pn eumothorax. MEDIASTINUM AND HILAR STRUCTURES: Age-appropriate. HEART AND VASCULAR STRUCTURES: Normal. BONES: No acute findings. HARDWARE: Right chest port tip overlies the RA-SVC junction. OTHER: No other significant finding. IMPRESSION: Right chest port tip overlies the RA-SVC junction. TECHNICAL DOCUMENTATION: JOB ID: [id number]
--- NOTE | 2017-01-09 20:20 | RADIOLOGY REPORT (SQ) ---
EXAM DESCRIPTION: CTA CHEST COMPLETED DATE/TIME: 01/09/2017 7:02 pm REASON FOR STUDY: tachypnea and tachycardia COMPARISON: 12/24/2016 TECHNIQUE: CT scan of the chest performed using helical scanning technique with dynamic intravenous contrast injection. Images reviewed with lung, soft tissue and bone windows. Reconstructed coronal and sagittal MPR images reviewed. Additional 3 dimensional post-processing performed to develop Maximal Intensity Projection images (TN P). All images stored on PACS. All CT scanners at this facility use dose modulation, iterative reconstruction, and/or weight based d osing when appropriate to reduce radiation dose to as low as reasonably achievable (ALARA). [facility]: Dose Right [facility]: CareDose [facility]: Dose Right [facility]: Teradose 4D [facility]: [employer] CONTRAST TYPE AND DOSE: contrast/concentration: Isovue 370.00 mg/ml; Total Contrast Delivered: 63.0 ml; Total Saline Delivered: 70.0 ml Contrast bolus optimized for the pulmonary arteries. Not diagnostic for the aorta. RENAL FUNCTION: GFR > 60. RADIATION DOSE: Up-to-date CT equipment and radiation dose reduction techniques were employed. CTDIv ol: 14.5 - 19.8 mGy. DLP: 543 mGy-cm. . LIMITATIONS: None. FINDINGS: LUNGS AND PLEURA: Diffuse pulmonary metastatic disease, similar to the prior study. New b ibasilar subsegmental atelectasis and small pleural effusions. AORTA AND GREAT VESSELS: No aneurysm. Contrast bolus not optimized for the aorta. HEART: No pericardial effusion. No significant coronary artery calcifications. PULMONARY ARTERIES: No emboli visualized in the main pulmonary arteries or the segmental branches. HILAR AND MEDIASTINAL STRUCTURES: Scattered abnormal nodes. HARDWARE: Right chest port. UPPER ABDOMEN: Diffuse ascites and hepatic metastatic disease. . Limited exam. THYROID AND OTHER SOFT TISSUES: No masses. No adenopathy. BONES: No acute or significant finding. 3D MIPS: Confirm above findings. OTHER: No other significant finding. IMPRESSION: No emboli visualized in the main pulmonary arteries or the segmental branches. Diffuse pulmonary and hepatic metastatic disease. COMMENT: Quality ID # [id number]: Final reports with documentation of one or more dose reduction techniques (e.g., Automated exposure control, adjustment of the mA and/or kV according to patient size, use of iterative reconstruction technique) TECHNICAL DOCUMENTATION: JOB ID: [id number]- All Rights Reserved
--- NOTE | 2017-01-10 06:08 | PDOC H&P ---
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 Chemo yesterday. Another 6L paracentesis today for dyspnea helped. Fever noted at [facility] not here. Past Medical History Cardiac Medical History: Reports: Hyperlipidema, Hypertension Denies: Coronary Artery Disease, Myocardial Infarction Pulmonary Medical History: Denies: Asthma, Bronchitis, Chronic Obstructive Pulmonary Disease (COPD), Pneumonia EENT Medical History: Reports: Nose - allergic rhinitis Neurological Medical History: Reports: None Denies: Seizures Endocrine Medical History: Reports: Hypothyroidism Renal/ Medical History: Reports: None Malignancy Medical History: Reports: Colorectal Cancer - stage 4, mets to the liver & lungs, recent chemo GI Medical History: Reports: Gastroesophageal Reflux Disease Musculoskeltal Medical History: Denies: Arthritis Skin Medical History: Reports: None Psychiatric Medical History: Reports: Depression Traumatic Medical History: Reports: None Hematology: Reports: Anemia Infectious Medical History: Reports: None Past Surgical History Past Surgical History: Reports: Orthopedic Surgery - right hand, Other - Exploratory laparotomy , sigmoid colectomy, colostomy, port placement Social History Information Source: Office Lives with: Family - mother Smoking Status: Never Smoker Frequency of Alcohol Use: None Hx Recreational Drug Use: No Drugs: None Hx Prescription Drug Abuse: No - Advance Directive Resuscitation Status: Full Code Family History Family History: CVA, Hypertension, Malignancy - sister colon Parental Family History Reviewed: Yes Children Family History Reviewed: Yes Sibling(s) Family History Reviewed.: Yes Medication/Allergy Home Medications: Atorvastatin Calcium [Lipitor 10 mg Tablet] 10 mg PO DAILY 01/09/17 Furosemide [Lasix 20 mg Tablet] 20 mg PO DAILY 01/09/17 Levothyroxine Sodium [Synthroid] 150 mcg PO DAILY 01/09/17 Metoprolol Tartrate 25 mg PO DAILY 01/09/17 Potassium Chloride [K-Tab ER] 20 meq PO DAILY 01/09/17 Oxycodone HCl [Oxy-Ir 5 mg Tablet] 5 mg PO BIDP PRN 01/10/17 Allergies/Adverse Reactions: No Known Allergies Allergy (Verified 01/09/17 15:34) Review of Systems Constitutional: PRESENT: fever(s), headache(s), weight loss Nose, Mouth, and Throat: ABSENT: sore throat Cardiovascular: PRESENT: dyspnea on exertion, orthropnea. ABSENT: chest pain Respiratory: PRESENT: cough. ABSENT: sputum Gastrointestinal: PRESENT: abdominal pain, bloating. ABSENT: constipation, diarrhea, hematochezia, melena, vomiting Genitourinary: ABSENT: difficulty urinating, dysuria, hematuria Integumentary: ABSENT: rash Physical Exam Vital Signs: Temp Pulse Resp BP Pulse Ox 99.0 F 106 H 16 111/82 93 01/10/17 04:00 01/10/17 04:00 01/10/17 04:00 01/10/17 04:00 01/10/17 04:00 Intake & Output 01/08/17 01/09/17 01/10/17 07:59 07:59 07:59 Output Total 100 Balance -100 General appearance: PRESENT: no acute distress Mouth exam: PRESENT: moist, tongue midline Neck exam: ABSENT: lymphadenopathy, tenderness, thyromegaly, tracheal deviation Respiratory exam: PRESENT: clear to auscultation bre Cardiovascular exam: ABSENT: diastolic murmur, irregular rhythm, systolic murmur GI/Abdominal exam: PRESENT: distended - wave, organolmegaly - liver. ABSENT: mass, tenderness Extremities exam: ABSENT: pedal edema Neurological exam: PRESENT: oriented to situation Psychiatric exam: PRESENT: depressed Skin exam: PRESENT: pallor, other - cachexia Results Laboratory Results: 01/09/17 20:09 Lactic Acid 1.5 Abnormal - 24 hr 01/09/17 01/09/17 01/09/17 15:15 15:15 16:13 WBC 14.4 H RBC 3.45 L Hgb 10.3 L Hct 31.5 L RDW 19.4 H Seg Neuts % (Manual) 96 H Lymphocytes % (Manual) 3 L Monocytes % (Manual) 1 L Abs Neuts (Manual) 13.8 H Abs Lymphs (Manual) 0.4 L VBG pH 7.47 H VBG pCO2 34.5 L Sodium 135.6 L Creatinine 0.51 L Direct Bilirubin 0.7 H AST 203 H Alkaline Phosphatase 799 H Total Protein 6.1 L Albumin 2.0 L Urine Urobilinogen Urine Ascorbic Acid 01/09/17 16:30 WBC RBC Hgb Hct RDW Seg Neuts % (Manual) Lymphocytes % (Manual) Monocytes % (Manual) Abs Neuts (Manual) Abs Lymphs (Manual) VBG pH VBG pCO2 Sodium Creatinine Direct Bilirubin AST Alkaline Phosphatase Total Protein Albumin Urine Urobilinogen 4.0 H Urine Ascorbic Acid 20 H Impressions: Chest X-Ray 01/09/17 00:00 IMPRESSION: Right chest port tip overlies the RA-SVC junction. Chest/Abdomen CTA 01/09/17 16:15 IMPRESSION: No emboli visualized in the main pulmonary arteries or the segmental branches. Diffuse pulmonary and hepatic metastatic disease. Paracentesis Ultrasound 01/09/17 16:19 IMPRESSION: Successful ultrasound-guided diagnostic and therapeutic paracentesis Venous Doppler Study 01/09/17 16:36 IMPRESSION: NO EVIDENCE OF DVT OR SVT IN THE LEFT LEG. Assessment & Plan - Diagnosis (1) Malignant neoplasm of descending colon Is this a current diagnosis for this admission?: Yes Plan: oxycodone 5mg bid. Stop bp & lipid meds. Suggested DNR (2) Ascites Qualifiers: Ascites type: malignant Qualified Code(s): R18.0 - Malignant ascites Is this a current diagnosis for this admission?: Yes Plan: paracentesis twice a week (3) Fever Qualifiers: Fever type: due to other condition Qualified Code(s): R50.81 - Fever presenting with conditions classified elsewhere Is this a current diagnosis for this admission?: Yes Plan: ceftri pending cultures. Only sign of sepsis was tachycardia. - Inpatient Certification Based on my medical assessment, after consideration of the patient's comorbidities, presenting symptoms, or acuity I expect that the services needed warrant INPATIENT care.: Yes I certify that my determination is in accordance with my understanding of Medicare's requirements for reasonable and necessary INPATIENT services [42 CFR 412.3e].: Yes Medical Necessity: Failure to Improve With Outpatient Therapy, Significant Comorbidiites Make Outpatient Treatment Too Risky, Need Close Monitoring Due to Risk of Patient Decompensation, Need For IV Fluids, Need for Pain Control, Need for IV Antibiotics, Risk of Complication if Not Cared For in Hospital, Risk of Diagnosis Which Will Require Inpatient Eval/Care/Monitoring
[2017-01-10] MEDS: CEFTRIAXONE 1 GM/D5W RTU 1 GM/50 ML RTUPB IV SCH (10:43)
[2017-01-10] MEDS: LEVOTHYROXINE SODIUM 0.15 MG TABLET PO SCH (10:44)
[2017-01-10] MEDS: ACETAMINOPHEN 325 MG TABLET PO PRN (17:11)
[2017-01-10] MEDS: OXYCODONE HCL IR 5 MG TABLET PO PRN (23:36)
--- NOTE | 2017-01-11 06:06 | PDOC PROGRESS REPORT ---
Subjective Progress Note for:: 01/11/17 Subjective:: abdomen getting bigger. Pain controlled. Physical Exam Vital Signs: Temp Pulse Resp BP Pulse Ox 97.8 F 101 H 16 126/91 H 96 01/11/17 00:18 01/11/17 02:00 01/11/17 00:18 01/11/17 00:18 01/11/17 00:18 Intake & Output 01/09/17 01/10/17 01/11/17 07:59 07:59 07:59 Intake Total 250 1615 Output Total 850 625 Balance -600 990 Weight 131 lb 2.801 oz General appearance: PRESENT: no acute distress, thin Respiratory exam: PRESENT: clear to auscultation bre Cardiovascular exam: ABSENT: diastolic murmur, irregular rhythm, tachycardia GI/Abdominal exam: PRESENT: organolmegaly. ABSENT: mass, tenderness Extremities exam: ABSENT: pedal edema Neurological exam: PRESENT: oriented to situation Psychiatric exam: PRESENT: appropriate affect Results Impressions: Chest X-Ray 01/09/17 00:00 IMPRESSION: Right chest port tip overlies the RA-SVC junction. Chest/Abdomen CTA 01/09/17 16:15 IMPRESSION: No emboli visualized in the main pulmonary arteries or the segmental branches. Diffuse pulmonary and hepatic metastatic disease. Paracentesis Ultrasound 01/09/17 16:19 IMPRESSION: Successful ultrasound-guided diagnostic and therapeutic paracentesis Venous Doppler Study 01/09/17 16:36 IMPRESSION: NO EVIDENCE OF DVT OR SVT IN THE LEFT LEG. Assessment & Plan - Diagnosis (1) Malignant neoplasm of descending colon Is this a current diagnosis for this admission?: Yes Plan: Does not want cpr or vent. So DNR. No director of critical care at home until 4pm when friend comes. Considering SNF. Consult Dr Plummer tomorrow about stopping chemo. (2) Ascites Qualifiers: Ascites type: malignant Qualified Code(s): R18.0 - Malignant ascites Is this a current diagnosis for this admission?: Yes Plan: paracentesis tomorrow (3) Fever Qualifiers: Fever type: due to other condition Qualified Code(s): R50.81 - Fever presenting with conditions classified elsewhere Is this a current diagnosis for this admission?: Yes Plan: [id number]. Cultures negative at 24h. Continue ceftri - Inpatient Certification Medical Necessity: Failure to Improve With Outpatient Therapy, Significant Comorbidiites Make Outpatient Treatment Too Risky, Need Close Monitoring Due to Risk of Patient Decompensation, Need For IV Fluids, Need for Pain Control, Need for IV Antibiotics, Risk of Complication if Not Cared For in Hospital, Risk of Diagnosis Which Will Require Inpatient Eval/Care/Monitoring
[2017-01-11] MEDS: CEFTRIAXONE 1 GM/D5W RTU 1 GM/50 ML RTUPB IV SCH (11:06)
[2017-01-11] MEDS: LEVOTHYROXINE SODIUM 0.15 MG TABLET PO SCH (11:07)
[2017-01-11] MEDS: ACETAMINOPHEN 325 MG TABLET PO PRN ×2 (13:05→20:19)
[2017-01-11] MEDS: OXYCODONE HCL IR 5 MG TABLET PO PRN (16:39)
[2017-01-12] MEDS: OXYCODONE HCL IR 5 MG TABLET PO PRN ×2 (03:45→18:12)
--- NOTE | 2017-01-12 07:53 | PDOC PROGRESS REPORT ---
Subjective Progress Note for:: 01/12/17 Subjective:: abdomen getting bigger. Back pain returning. Wants to live with friend till the end. Still wants chemo. Physical Exam Vital Signs: Temp Pulse Resp BP Pulse Ox 98.1 F 103 H 12 117/84 95 01/12/17 04:53 01/12/17 04:53 01/12/17 04:53 01/12/17 04:53 01/12/17 04:53 Intake & Output 01/10/17 01/11/17 01/12/17 07:59 07:59 07:59 Intake Total 1037 Output Total 250 Balance 787 Weight 146 lb 2.664 oz General appearance: PRESENT: no acute distress Respiratory exam: PRESENT: clear to auscultation bre Cardiovascular exam: ABSENT: diastolic murmur, irregular rhythm, systolic murmur GI/Abdominal exam: PRESENT: ascites. ABSENT: mass, organolmegaly, tenderness Extremities exam: PRESENT: pedal edema Neurological exam: PRESENT: oriented to situation Psychiatric exam: PRESENT: appropriate affect Results Impressions: Chest X-Ray 01/09/17 00:00 IMPRESSION: Right chest port tip overlies the RA-SVC junction. Chest/Abdomen CTA 01/09/17 16:15 IMPRESSION: No emboli visualized in the main pulmonary arteries or the segmental branches. Diffuse pulmonary and hepatic metastatic disease. Paracentesis Ultrasound 01/09/17 16:19 IMPRESSION: Successful ultrasound-guided diagnostic and therapeutic paracentesis Venous Doppler Study 01/09/17 16:36 IMPRESSION: NO EVIDENCE OF DVT OR SVT IN THE LEFT LEG. Assessment & Plan - Diagnosis (1) Malignant neoplasm of descending colon Is this a current diagnosis for this admission?: Yes Plan: Increase oxy to tid. Tomorrow to friends home with hospital bed and bedside commode. (2) Ascites Qualifiers: Ascites type: malignant Qualified Code(s): R18.0 - Malignant ascites Is this a current diagnosis for this admission?: Yes Plan: paracentesis today and twice weekly (3) Fever Qualifiers: Fever type: due to other condition Qualified Code(s): R50.81 - Fever presenting with conditions classified elsewhere Is this a current diagnosis for this admission?: Yes Plan: afebrile 24h on ceftri - Inpatient Certification Medical Necessity: Significant Comorbidiites Make Outpatient Treatment Too Risky , Need Close Monitoring Due to Risk of Patient Decompensation, Need for Pain Control, Need for IV Antibiotics
--- NOTE | 2017-01-12 09:21 | PDOC CONSULTATION ---
Consultation Consult Date: 01/12/17 Attending physician:: MIGUEL SIN Consult reason:: Stage IV colon cancer, progression of disease History of Present Illness Admission Date/PCP: 01/11/17 16:51 MIGUEL SIN MD Patient complains of: Abdominal pain, ascites History of Present Illness: 56-year-old male with known history of stage IV colon cancer with recent progression, diffuse hepatic metastasis as well as lung metastasis and recurrent ascites malignant, been on recent chemotherapy, came in with worsening fever abdominal pain abdominal distention, has been on some antibiotics through the weekend, today I had a long discussion with family as well as patient about comfort care measures, we do not believe he is a candidate for further chemotherapy, I spent greater than 70 minutes in discussion with patient today. Past Medical History Cardiac Medical History: Reports: Hyperlipidema, Hypertension Denies: Coronary Artery Disease, Myocardial Infarction Pulmonary Medical History: Denies: Asthma, Bronchitis, Chronic Obstructive Pulmonary Disease (COPD), Pneumonia EENT Medical History: Reports: Nose - allergic rhinitis Neurological Medical History: Reports: None Denies: Seizures Endocrine Medical History: Reports: Hypothyroidism Renal/ Medical History: Reports: None Malignancy Medical History: Reports: Colorectal Cancer - stage 4, mets to the liver & lungs, recent chemo GI Medical History: Reports: Gastroesophageal Reflux Disease Musculoskeltal Medical History: Denies: Arthritis Skin Medical History: Reports: None Psychiatric Medical History: Reports: Depression Traumatic Medical History: Reports: None Hematology: Reports: Anemia Infectious Medical History: Reports: None Past Surgical History Past Surgical History: Reports: Orthopedic Surgery - right hand, Other - Exploratory laparotomy , sigmoid colectomy, colostomy, port placement Social History Lives with: Family - mother Smoking Status: Never Smoker Frequency of Alcohol Use: None Hx Recreational Drug Use: No Drugs: None Hx Prescription Drug Abuse: No - Advance Directive Resuscitation Status: Full Code Family History Family History: CVA, Hypertension, Malignancy - sister colon Parental Family History Reviewed: Yes Children Family History Reviewed: Yes Sibling(s) Family History Reviewed.: Yes Medication/Allergy Home Medications: Atorvastatin Calcium [Lipitor 10 mg Tablet] 10 mg PO DAILY 01/09/17 Furosemide [Lasix 20 mg Tablet] 20 mg PO DAILY 01/09/17 Levothyroxine Sodium [Synthroid] 150 mcg PO DAILY 01/09/17 Metoprolol Tartrate 25 mg PO DAILY 01/09/17 Potassium Chloride [K-Tab ER] 20 meq PO DAILY 01/09/17 Oxycodone HCl [Oxy-Ir 5 mg Tablet] 5 mg PO BIDP PRN 01/10/17 Allergies/Adverse Reactions: No Known Allergies Allergy (Verified 01/09/17 15:34) Review of Systems Constitutional: ABSENT: chills, fever(s), headache(s), weight gain, weight loss Eyes: ABSENT: visual disturbances Ears: ABSENT: hearing changes Cardiovascular: ABSENT: chest pain, dyspnea on exertion, edema, orthropnea, palpitations Respiratory: ABSENT: cough, hemoptysis Gastrointestinal: ABSENT: abdominal pain, constipation, diarrhea, hematemesis, hematochezia, nausea, vomiting Genitourinary: ABSENT: dysuria, hematuria Musculoskeletal: ABSENT: joint swelling Integumentary: ABSENT: rash, wounds Neurological: ABSENT: abnormal gait, abnormal speech, confusion, dizziness, focal weakness, syncope Psychiatric: ABSENT: anxiety, depression, homidical ideation, suicidal ideation Endocrine: ABSENT: cold intolerance, heat intolerance, polydipsia, polyuria Hematologic/Lymphatic: ABSENT: easy bleeding, easy bruising Physical Exam Vital Signs: Temp Pulse Resp BP Pulse Ox 98.1 F 103 H 12 117/84 95 01/12/17 04:53 01/12/17 04:53 01/12/17 04:53 01/12/17 04:53 01/12/17 04:53 Intake & Output 01/11/17 01/12/17 01/13/17 06:59 06:59 06:59 Intake Total 1037 Output Total 250 Balance 787 Weight 66.3 kg General appearance: PRESENT: no acute distress, well-developed, well-nourished Head exam: PRESENT: atraumatic, normocephalic Eye exam: PRESENT: conjunctiva pink, EOMI, PERRLA. ABSENT: scleral icterus Ear exam: PRESENT: normal external ear exam Mouth exam: PRESENT: moist, tongue midline Neck exam: ABSENT: carotid bruit, JVD, lymphadenopathy, thyromegaly Respiratory exam: PRESENT: clear to auscultation bre. ABSENT: rales, rhonchi, wheezes Cardiovascular exam: PRESENT: RRR. ABSENT: diastolic murmur, rubs, systolic murmur Pulses: PRESENT: normal dorsalis pedis pul Vascular exam: PRESENT: normal capillary refill GI/Abdominal exam: PRESENT: normal bowel sounds, soft. ABSENT: distended, guarding, mass, organolmegaly, rebound, tenderness Rectal exam: PRESENT: deferred Extremities exam: PRESENT: full ROM. ABSENT: calf tenderness, clubbing, pedal edema Neurological exam: PRESENT: alert, awake, oriented to person, oriented to place , oriented to time, oriented to situation, CN II-XII grossly intact. ABSENT: motor sensory deficit Psychiatric exam: PRESENT: appropriate affect, normal mood. ABSENT: homicidal ideation, suicidal ideation Skin exam: PRESENT: dry, intact, warm. ABSENT: cyanosis, rash Results Impressions: Chest X-Ray 01/09/17 00:00 IMPRESSION: Right chest port tip overlies the RA-SVC junction. Chest/Abdomen CTA 01/09/17 16:15 IMPRESSION: No emboli visualized in the main pulmonary arteries or the segmental branches. Diffuse pulmonary and hepatic metastatic disease. Paracentesis Ultrasound 01/09/17 16:19 IMPRESSION: Successful ultrasound-guided diagnostic and therapeutic paracentesis Venous Doppler Study 01/09/17 16:36 IMPRESSION: NO EVIDENCE OF DVT OR SVT IN THE LEFT LEG. Assessment & Plan - Diagnosis (1) Malignant neoplasm of descending colon Is this a current diagnosis for this admission?: Yes Plan: Stage IV colon cancer, I believe his performance status is worsened enough that he is no longer a candidate for therapy, agree with comfort care measures and DNR status, agree with hospice, he is appropriate for hospice, life expectancy less than 6 months. - Time Time Spent: Greater than 70 Minutes Critical Time spent with patient: 35 or more minutes
[2017-01-12] MEDS: ACETAMINOPHEN 325 MG TABLET PO PRN (10:02)
[2017-01-12] MEDS: LEVOTHYROXINE SODIUM 0.15 MG TABLET PO SCH (10:02)
[2017-01-12] MEDS: CEFTRIAXONE 1 GM/D5W RTU 1 GM/50 ML RTUPB IV SCH (10:03)
--- NOTE | 2017-01-12 13:34 | RADIOLOGY REPORT (SQ) ---
EXAM DESCRIPTION: U/S ABD PARACENTESIS COMPLETED DATE/TIME: 01/12/2017 1:19 pm REASON FOR STUDY: malignant ascites/due COMPARISON Prior paracentesis 12/30/2016, 01/09/2017 LIMITATIONS: None. PROCEDURE: After obtaining informed consent, the patient was brought to the ultrasound suite. The p rocedure was performed with the patient on a gurney. Ultrasound was used to identify a prominent poc ket of ascites right lower quadrant. An appropriate access site was selected. The patient was prepp ed and draped in usual sterile fashion. The access site was anesthetized with 5 mL 1% lidocaine. A Blod-I-[id number] needle was advanced into the fluid. After aspiration of fluid the needle, the manuela ter was advanced off the needle into the fluid. A total of 6,000 mL of clear yellow fluid was remove d. The patient tolerated the procedure well left the department in satisfactory condition. IMPRESSION: Successful ultrasound-guided therapeutic paracentesis COMMENT: Patient medication list reviewed: Yes- Quality ID# [id number]:Eligible professional attests to doc umenting in the medical record they obtained, updated, or reviewed the patient's current medications. Quality ID #[id number]: The patient was prepped and draped using maximum sterile barrier technique including cap, mask, sterile gown, sterile gloves, a large sterile sheet, hand hygiene, and 2% Chlorhexidine fo r cutaneous antisepsis. When ultrasound is used, sterile ultrasound techniques are followed requiring sterile gel and sterile probes. Quality ID #[id number]: Final reports for procedures using fluoroscopy that document radiation exposure rodríguez marlon, or exposure time and number of fluorographic images (if radiation exposure indices are not avail able) TECHNICAL DOCUMENTATION: JOB ID: [id number] [employer]- All Rights Reserved
[2017-01-12] MEDS: ALBUMIN HUMAN 50 ML IV SCH ×2 (16:15→16:55)
--- NOTE | 2017-01-12 16:15 | Progress Note ---
Provider Note Provider Note: PALLIATIVE CARE Palliative Care visit attempted at 11:10 AM 01/12/17. Appreciate consult request for palliative services. I visited with patient this AM and he was awaiting transport to IR of paracentesis. I explained to patient and the ladies staying with him about palliative care, but patient turned away from me. They told me he had decided this AM to stop chemo. Before we could discuss any further, he said he needed to void and asked me to leave. When I returned back to room a few minutes later, he had gone for paracentesis. In review of chart, I see he has been referred to hospice and is agreeable. Noted report from paracentesis, and hope this helped with pressure and pain. Patient had complained about pain in his leg also, but dismissed me before elaborating. I will return to provide any support I can to patient and family while he is admitted. No charges made for todays visit. I left my cell number for them in case of any questions or needs.
[2017-01-13] MEDS: OXYCODONE HCL IR 5 MG TABLET PO PRN ×2 (02:53→11:30)
--- NOTE | 2017-01-13 06:18 | PDOC DISCHARGE SUMMARY ---
General - Admit/Disc Date/PCP Admission Date/Primary Care Provider: 01/11/17 16:51 MIGUEL SIN MD Discharge Date: 01/13/17 - Discharge Diagnosis (1) Malignant neoplasm of descending colon Is this a current diagnosis for this admission?: Yes (2) Ascites Is this a current diagnosis for this admission?: Yes (3) Fever Is this a current diagnosis for this admission?: Yes - Additional Information Resuscitation Status: Do Not Resuscitate Discharge Diet: Regular Discharge Activity: Activity As Tolerated Home Medications: Levothyroxine Sodium [Synthroid] 150 mcg PO DAILY 01/09/17 Lactulose [Cephulac Syrup 20 gm/30 ml Udcup] 20 gm PO BID #1000 ml 01/13/17 Oxycodone HCl [Oxy-Ir 5 mg Tablet] 5 mg PO TIDP PRN #90 tablet 01/13/17 History of Present Illness Patient complains of: abdominal pain History of Present Illness: VINCENT LEWIS is a 56 year old male with descending colon cancer liver & lung mets and ascites. Chemo yesterday. Another 6L paracentesis today for dyspnea helped. Fever noted at [facility] not here. Hospital Course Hospital Course: 2 more 6L paracenteses helped. Afebrile 48h on ceftriaxone. Cultures negative. Oxycodone increased to tid. He elected DNR, stopping chemo, and starting hospice. Lactulose was added. He had enema. Physical Exam Vital Signs: Temp Pulse Resp BP Pulse Ox 98.5 F 121 H 12 115/74 94 01/13/17 00:06 01/13/17 02:00 01/13/17 00:06 01/13/17 00:06 01/13/17 00:06 Intake & Output 01/11/17 01/12/17 01/13/17 07:59 07:59 07:59 Intake Total 1037 1333 Output Total 250 250 Balance 787 1083 Weight 146 lb 2.664 oz General appearance: PRESENT: no acute distress Respiratory exam: PRESENT: clear to auscultation bre Cardiovascular exam: ABSENT: diastolic murmur, irregular rhythm, systolic murmur GI/Abdominal exam: PRESENT: organolmegaly - liver. ABSENT: tenderness Extremities exam: ABSENT: pedal edema Neurological exam: PRESENT: oriented to situation Psychiatric exam: PRESENT: appropriate affect Results Laboratory Results: Labs- Last Values WBC 14.4 10^3/uL (4.0-10.5) H 01/09/17 15:15 RBC 3.45 10^6/uL (4.35-5.55) L 01/09/17 15:15 Hgb 10.3 g/dL (13.5-17.0) L 01/09/17 15:15 Hct 31.5 % (37.9-51.0) L 01/09/17 15:15 MCV 91 fl (80-97) 01/09/17 15:15 MCH 29.7 pg (27.0-33.4) 01/09/17 15:15 MCHC 32.6 g/dL (32.0-36.0) 01/09/17 15:15 RDW 19.4 % (11.5-14.0) H 01/09/17 15:15 Plt Count 343 10^3/uL (150-450) 01/09/17 15:15 Total Counted 100 01/09/17 15:15 Seg Neutrophils % Not Reportable 01/09/17 15:15 Seg Neuts % (Manual) 96 % (42-78) H 01/09/17 15:15 Lymphocytes % Not Reportable 01/09/17 15:15 Lymphocytes % (Manual) 3 % (13-45) L 01/09/17 15:15 Monocytes % Not Reportable 01/09/17 15:15 Monocytes % (Manual) 1 % (3-13) L 01/09/17 15:15 Eosinophils % Not Reportable 01/09/17 15:15 Eosinophils % (Manual) 0 % (0-6) 01/09/17 15:15 Basophils % Not Reportable 01/09/17 15:15 Basophils % (Manual) 0 % (0-2) 01/09/17 15:15 Absolute Neutrophils Not Reportable 01/09/17 15:15 Abs Neuts (Manual) 13.8 10^3/uL (1.7-8.2) H 01/09/17 15:15 Absolute Lymphocytes Not Reportable 01/09/17 15:15 Abs Lymphs (Manual) 0.4 10^3/uL (0.5-4.7) L 01/09/17 15:15 Absolute Monocytes Not Reportable 01/09/17 15:15 Abs Monocytes (Manual) 0.1 10^3/uL (0.1-1.4) 01/09/17 15:15 Absolute Eosinophils Not Reportable 01/09/17 15:15 Absolute Eos (Manual) 0.0 10^3/uL (0.0-0.6) 01/09/17 15:15 Absolute Basophils Not Reportable 01/09/17 15:15 Abs Basophils (Manual) 0.0 10^3/uL (0.0-0.2) 01/09/17 15:15 Toxic Granulation SLIGHT 01/09/17 15:15 Platelet Comment ADEQUATE 01/09/17 15:15 Poikilocytosis SLIGHT 01/09/17 15:15 Anisocytosis 2+ 01/09/17 15:15 Ovalocytes SLIGHT 01/09/17 15:15 [place] Cells SLIGHT 01/09/17 15:15 PT 15.2 SEC (11.4-15.4) 01/09/17 15:23 INR 1.12 01/09/17 15:23 APTT 33.2 SEC (23.5-35.8) 01/09/17 15:23 VBG pH 7.47 (7.30-7.42) H 01/09/17 16:13 VBG pCO2 34.5 mmHg (35-63) L 01/09/17 16:13 VBG HCO3 24.4 mmol/L (20-32) 01/09/17 16:13 VBG Base Excess 1.2 mmol/L 01/09/17 16:13 Sodium 135.6 mmol/L (137-145) L 01/09/17 15:15 Potassium 4.3 mmol/L (3.6-5.0) 01/09/17 15:15 Chloride 101 mmol/L (98-107) 01/09/17 15:15 Carbon Dioxide 28 mmol/L (22-30) 01/09/17 15:15 Anion Gap 7 (5-19) 01/09/17 15:15 BUN 18 mg/dL (7-20) 01/09/17 15:15 Creatinine 0.51 mg/dL (0.52-1.25) L 01/09/17 15:15 Est GFR ( Amer) > 60 (>60) 01/09/17 15:15 Est GFR (Non-Af Amer) > 60 (>60) 01/09/17 15:15 Glucose 101 mg/dL (75-110) 01/09/17 15:15 Lactic Acid 1.5 mmol/L (0.7-2.1) 01/09/17 20:09 Calcium 8.6 mg/dL (8.4-10.2) 01/09/17 15:15 Total Bilirubin 0.9 mg/dL (0.2-1.3) 01/09/17 15:15 Direct Bilirubin 0.7 mg/dL (0.0-0.4) H 01/09/17 15:15 Indirect Bilirubin Not Reportable 01/09/17 15:15 Neonat Total Bilirubin Not Reportable 01/09/17 15:15 AST 203 U/L (17-59) H 01/09/17 15:15 ALT 59 U/L (21-72) 01/09/17 15:15 Alkaline Phosphatase 799 U/L (38-126) H 01/09/17 15:15 Total Protein 6.1 g/dL (6.3-8.2) L 01/09/17 15:15 Albumin 2.0 g/dL (3.5-5.0) L 01/09/17 15:15 Urine Color YELLOW 01/09/17 16:30 Urine Appearance CLEAR 01/09/17 16:30 Urine pH 5.0 (5.0-9.0) 01/09/17 16:30 Ur Specific [place] 1.011 01/09/17 16:30 Urine Protein NEGATIVE mg/dL (NEGATIVE) 01/09/17 16:30 Urine Glucose (UA) NEGATIVE mg/dL (NEGATIVE) 01/09/17 16:30 Urine Ketones NEGATIVE mg/dL (NEGATIVE) 01/09/17 16:30 Urine Blood NEGATIVE (NEGATIVE) 01/09/17 16:30 Urine Nitrite NEGATIVE (NEGATIVE) 01/09/17 16:30 Urine Bilirubin NEGATIVE (NEGATIVE) 01/09/17 16:30 Urine Urobilinogen 4.0 mg/dL (<2.0) H 01/09/17 16:30 Ur Leukocyte Esterase NEGATIVE (NEGATIVE) 01/09/17 16:30 Urine WBC (Auto) 1 /HPF 01/09/17 16:30 Urine RBC (Auto) 0 /HPF 01/09/17 16:30 Urine Mucus (Auto) RARE /LPF 01/09/17 16:30 Urine Ascorbic Acid 20 (NEGATIVE) H 01/09/17 16:30 Fluid Type PERITONEAL 01/09/17 17:32 Fluid Source ASCITES 01/09/17 17:32 Fluid Color YELLOW 01/09/17 17:32 Fluid Appearance SLIGHTLY HAZY 01/09/17 17:32 Fluid Viscosity SLIGHTLY VISCOUS 01/09/17 17:32 Fluid WBC 12 /uL 01/09/17 17:32 Fluid RBC 36 /uL 01/09/17 17:32 Fluid Seg Neutrophils 65 % 01/09/17 17:32 Fluid Lymphocytes 33 % 01/09/17 17:32 Fluid Monocytes 2 % 01/09/17 17:32 Impressions: Chest X-Ray 01/09/17 00:00 IMPRESSION: Right chest port tip overlies the RA-SVC junction. Chest/Abdomen CTA 01/09/17 16:15 IMPRESSION: No emboli visualized in the main pulmonary arteries or the segmental branches. Diffuse pulmonary and hepatic metastatic disease. Venous Doppler Study 01/09/17 16:36 IMPRESSION: NO EVIDENCE OF DVT OR SVT IN THE LEFT LEG. Paracentesis Ultrasound 01/12/17 00:00 IMPRESSION: Successful ultrasound-guided therapeutic paracentesis Qualifiers PATEINT BEING DISCHARGED WITH ANY OF THE FOLLOWING DIAGNOSIS?: No Plan Discharge Plan: He plans home under [facility]. He has less than 6 months.
--- NOTE | 2017-01-13 09:30 | PDOC PROGRESS REPORT ---
Subjective Progress Note for:: 01/13/17 Subjective:: No acute events overnight Physical Exam Vital Signs: Temp Pulse Resp BP Pulse Ox 97.9 F 111 H 14 117/79 94 01/13/17 05:38 01/13/17 05:38 01/13/17 05:38 01/13/17 05:38 01/13/17 05:38 Intake & Output 01/12/17 01/13/17 01/14/17 06:59 06:59 06:59 Intake Total 1037 1643 Output Total 250 350 Balance 787 1293 Weight 66.3 kg 61.5 kg General appearance: PRESENT: no acute distress, well-developed, well-nourished Head exam: PRESENT: atraumatic, normocephalic Eye exam: PRESENT: conjunctiva pink, EOMI, PERRLA. ABSENT: scleral icterus Ear exam: PRESENT: normal external ear exam Mouth exam: PRESENT: moist, tongue midline Neck exam: ABSENT: carotid bruit, JVD, lymphadenopathy, thyromegaly Respiratory exam: PRESENT: clear to auscultation bre. ABSENT: rales, rhonchi, wheezes Cardiovascular exam: PRESENT: RRR. ABSENT: diastolic murmur, rubs, systolic murmur Pulses: PRESENT: normal dorsalis pedis pul Vascular exam: PRESENT: normal capillary refill GI/Abdominal exam: PRESENT: normal bowel sounds, soft. ABSENT: distended, guarding, mass, organolmegaly, rebound, tenderness Rectal exam: PRESENT: deferred Extremities exam: PRESENT: full ROM. ABSENT: calf tenderness, clubbing, pedal edema Neurological exam: PRESENT: alert, awake, oriented to person, oriented to place , oriented to time, oriented to situation, CN II-XII grossly intact. ABSENT: motor sensory deficit Psychiatric exam: PRESENT: appropriate affect, normal mood. ABSENT: homicidal ideation, suicidal ideation Skin exam: PRESENT: dry, intact, warm. ABSENT: cyanosis, rash Results Impressions: Chest X-Ray 01/09/17 00:00 IMPRESSION: Right chest port tip overlies the RA-SVC junction. Chest/Abdomen CTA 01/09/17 16:15 IMPRESSION: No emboli visualized in the main pulmonary arteries or the segmental branches. Diffuse pulmonary and hepatic metastatic disease. Venous Doppler Study 01/09/17 16:36 IMPRESSION: NO EVIDENCE OF DVT OR SVT IN THE LEFT LEG. Paracentesis Ultrasound 01/12/17 00:00 IMPRESSION: Successful ultrasound-guided therapeutic paracentesis Assessment & Plan - Diagnosis (1) Malignant neoplasm of descending colon Is this a current diagnosis for this admission?: Yes Plan: Plan for hospice, today we made appropriate coordination of care, we spent about 45 minutes in coordination of care but otherwise things are in place for him to go home. - Time Time Spent with patient: 35 or more minutes Critical Time spent with patient: 35 or more minutes
[2017-01-13] MEDS: LEVOTHYROXINE SODIUM 0.15 MG TABLET PO SCH (09:54)
[2017-01-13] MEDS: CEFTRIAXONE 1 GM/D5W RTU 1 GM/50 ML RTUPB IV SCH (09:55)
[2017-01-13] MEDS ORDERED: LACTULOSE SYRUP 20 GM/30 ML UDCUP PO SCH (10:00)
[2017-01-13 11:53] VITALS: BP 111/82
== END 2017-01-13 12:24 | disposition hospice, home (50) | DRG 375 ==
LOC: ER 14:56 → EH 18:33 → UNDOADMIN 18:33 → EH 19:39 → INTOOBSV 19:39 → EH 21:22 → 3N 21:22 → OBSVTOIN 01-11 16:51
PROVIDERS: ADMIT Family Medicine; ATTEND Family Medicine
PROC: 0W9G3ZX Drainage of Peritoneal Cavity, Percutaneous Approach, Diagnostic (ICD-10-PCS; principal; 2017-01-09)
PROC: 0W9G3ZZ Drainage of Peritoneal Cavity, Percutaneous Approach (ICD-10-PCS; 2017-01-12)
DX: C18.6 Malignant neoplasm of descending colon (principal); R18.0 Malignant ascites; C78.7 Secondary malignant neoplasm of liver and intrahepatic bile duct; C78.00 Secondary malignant neoplasm of unspecified lung; Z66 Do not resuscitate; I10 Essential (primary) hypertension; E03.9 Hypothyroidism, unspecified; K21.9 Gastro-esophageal reflux disease without esophagitis
CPT/HCPCS: 36415; 36591; 49083; 71010; 71275; 80053; 81001; 82803; 83605; 85025; 85610; 85730; 87040; 87070; 87075; 87086; 87205; 89050; 93971; 96361; 96374; 96375; 99285; G0378; J0696; J1335; J2270; J2405; J7030; P9047

== ENCOUNTER 2017-01-23 08:45 | Day surgery (SDC) | payer BC ==
[2017-01-23] MEDS ORDERED: FENTANYL CITRATE INJ/PF 100 MCG/2 ML AMPUL ONE (09:06)
[2017-01-23] MEDS ORDERED: MIDAZOLAM 2 MG/2 ML INJ ONE (09:06)
[2017-01-23] MEDS ORDERED: MORPHINE SULFATE 10 MG/ML INJ ONE (09:53)
--- NOTE | 2017-01-23 10:37 | Operative Report ---
Operative Report DATE OF SURGERY: 01/23/17 PREOPERATIVE DIAGNOSIS: Metastatic colorectal carcinoma with malignant ascites POSTOPERATIVE DIAGNOSIS: Same OPERATION: 1. Focus of the abdominal wall. 2. Pleurx catheter insertion into the peritoneal cavity. 3. Drainage of 2.7 L of ascitic fluid-paracentesis SURGEON: YOLANDA LOPES ANESTHESIA: Moderate Sedation TISSUE REMOVED OR ALTERED: Paracentesis fluid drained COMPLICATIONS: None ESTIMATED BLOOD LOSS: Scant INTRAOPERATIVE FINDINGS: See below PROCEDURE: Patient was taken from the amatory area to the recovery room where he was placed in semirecumbent position monitoring devices were attached. Surgical plan surgical timeout conducted. The distended abdomen was scanned with a variable frequency linear transducer. Findings are significant for free pocket of ascitic fluid in the right mid to right lower quadrant. The right lower quadrant was prepped and draped with chlorhexidine. Skin was anesthetized with 1% plain lidocaine. 11 blade was used to make a omi in the skin and Jelco needle and wire were threaded into the peritoneal cavity. Ascitic fluid returned immediately Suitable site for exit of the Pleurx catheter was chosen in the patient's subcostal area. The skin was anesthetized 1% plain lidocaine. The tract was anesthetized as well. A small exit wound was made with the 11 blade, and the Pleurx catheter was tunneled between the 2 incisions. The small and medium dilators were then threaded sequentially over the wire and the dilator and introducer sheath threaded into position. Dilator and wire were removed, catheter threaded into the sheath and the sheath stripped away leaving the catheter in good position. We checked to ensure there is no kinking of the catheter. The catheter was hooked up to the proprietary drainage system and we drained approximately 2.7 L of ascitic fluid uneventfully for the patient peritoneal cavity. Incision closed with 4-0 Vicryl and catheter secured to the skin with 0 silk 2. Biopatch sterile dressings applied. Patient taught procedure well. Equipment and instructions provided to the patient care provider. Discharge instructions provided.
--- NOTE | 2017-01-23 10:40 | PDOC DISCHARGE SUMMARY ---
Discharge Summary (SDC) - Discharge Final Diagnosis: Metastatic colorectal carcinoma with malignant ascites Date of Surgery: 01/23/17 Discharge Date: 01/23/17 Condition: Good Treatment or Instructions: Discharge instruction provided. Patient to drain peritoneal fluid on a as needed basis. Proprietary drainage tubing and receptacles to be provided to patient. Patient follow-up with Dr. Plummer [facility]. Referrals: MIGUEL SIN MD [Primary Care Provider] - Discharge Diet: As Tolerated Discharge Activity: Activity As Tolerated Home Care Assistance: None Needed Activities Provided by Home Health Agency: Alf Report the Following to Your Physician Immediately: Shortness of Breath, Increase in Pain, Fever over 101 Degrees
[2017-01-23 12:47] VITALS: BP 115/81
== END 2017-01-23 12:30 | disposition hospice, home (50) ==
LOC: ASU 08:45
PROVIDERS: ATTEND Surgery
PROC: 0W9F3ZZ Drainage of Abdominal Wall, Percutaneous Approach (ICD-10-PCS; principal; 2017-01-23)
DX: R18.0 Malignant ascites (principal); C79.9 Secondary malignant neoplasm of unspecified site; C18.6 Malignant neoplasm of descending colon; D64.9 Anemia, unspecified; E07.9 Disorder of thyroid, unspecified; E78.00 Pure hypercholesterolemia, unspecified
CPT/HCPCS: 49082; J2250; J3010; J2270; J1642